=== PATIENT | female | born 1960 | race Caucasian/White ===

== ENCOUNTER 2020-11-08 20:44 | Inpatient (IN) | payer OTHER ==
[~2020-11-08] VITALS: Ht 165.1 cm; Wt 158.3 kg
--- NOTE | ~2020-11-08 | HC ---
[facility] [place] [address] CONSULTATION Name: SELINA LINARES Room #: 363-P ADM IN M.R.#: [id number] Admission: 11/08/20 Attend Phys: Esperanza Kraft Monica Discharge: Date of : 60 Report #: [id number] THIS REPORT FOR: cc: Nick Gaspar Sr, MD, Otis S Sr MD Smithson, David G. MD ~ DATE OF SERVICE: 11/24/2020 HISTORY OF PRESENT ILLNESS: The patient is seen back today in followup. She notes she is feeling better, although she continues to have some problems with photophobia and some dizziness, which she relates back to the initial fall at home on 11/08/2020 when she hit her head and lost consciousness, which she notes for 5 hours before she woke up. CT of the head was negative and she refused the MRI. Neurology has been consulted for traumatic brain injury. She is receiving the IV L1asix for her congestive heart failure. She is continuing on 2 liters nasal prong O2. PHYSICAL EXAMINATION: GENERAL: The patient is alert. She is pleasant. She follows basic commands without difficulty. She appears a little excitable and can talk fast, but is very appropriate with her answers. She has facies which are symmetric. NEUROMUSCULOSKELETAL: Functional range of motion of the upper extremity, strength is a grade 4- to 4/5. Lower extremities, Band-Aid is over the left lateral knee, which was injected by Orthopedics. Strength is grade 4-/5. There is no focal calf swelling. She is significantly obese. She has been transferring sit to stand, standby assistance, gait 100 feet, standby assistance with a front-wheeled walker. Continuing on the 2 liters nasal prong O2. In occupational therapy, she deferred today. ASSESSMENT: 1. Traumatic brain injury, concussion, status post fall. 2. Acute hypoxic respiratory failure with pneumonia. 3. Acute diastolic congestive heart failure. 4. Left breast cellulitis. 5. Anxiety, which appears to be improving. 6. Stage 2 buttock ulcer. 7. Bilateral acute and chronic knee pain. 8. History of gastric bypass for morbid obesity. 9. Iron deficiency anemia. 10. Status post left knee joint injection by Orthopedics. PLAN: Primary service is desiring for her to come to the acute in-hospital inpatient rehabilitation kelly. Insurance will be checked regarding a short acute in-hospital inpatient rehabilitation stay. I discussed with the patient further regarding various issues: [facility] [address] [place] [address] CONSULTATION Name: SELINA LINARES Room #: 363-P [facility] IN ..#: [id number] Admission: 11/08/20 Attend Phys: Esperanza Lee Discharge: Date of : 60 Report #: [id number] 1. Nasal prong O2. Currently on 2 liters. She was not on oxygen premorbidly. 2. Narcotics. She is on morphine HCL and hydrocodone and has a contract through Lore Levi with Dr. Gaspar. She notes she has decreased her morphine dose considerably. 3. She indicates that she does have a home setting to return to. There was apparently conflict with her landlord, but she notes she has an contract attorney involved and does have the apartment, which she will be able to return to. 4. Therapy cooperation. The patient indicates that she will be cooperative and work in therapies, PT and OT and also appeared amenable to have some speech therapy involvement when I discussed that speech would be working with her regarding some of the issues with the traumatic brain injury rather than just speech issues. We will have speech therapy involved and we will consult them at this point as well. 5. We discussed the goal to further improve her strength, mobility, ADL independence and independence with cognition, so that she can return back to the home setting. She appears amenable to a short inpatient rehabilitation stay to maximize her functional independence, so that this can be achieved. Again, insurance precertification issues will need to be checked and we will be glad to follow along with you. By: [id number] 1125 Christian Varma MD /nt
--- NOTE | ~2020-11-08 | HC ---
[facility] [place] [address] CONSULTATION Name: SELINA LINARES Room #: 363-P ADM IN M.R.#: [id number] Admission: 11/08/20 Attend Phys: Esperanza Lee Discharge: Date of : 60 Report #: [id number] THIS REPORT FOR: cc: Nick Gaspar Sr, MD, Otis S Sr MD Rizzi, Raymond M. DPM ~ INTRODUCTION: A 60-year-old white female who was admitted to the hospital on 11/08/2020 where she was admitted from falling and unable to get up, also concerns of head trauma due to loss of consciousness. I am asked to see her today because of bilateral foot pain. PAST MEDICAL HISTORY: Noted for anemia, congestive heart failure, dyspnea, fall, anemia, and morbid obesity. MEDICATIONS: List in the chart. ALLERGIES: No known drug allergies. PREVIOUS SURGERIES: The patient had previous history of abdominal hernia repair, cholecystectomy, gastric bypass, lumbar fusion. FAMILY HISTORY: Noncontributory. SOCIAL HISTORY: The patient has history of heavy use of cigarettes and occasional alcohol. PHYSICAL EXAMINATION: GENERAL: The patient is well-developed, well-nourished, morbidly obese white female, disheveled when she came into the hospital, but since has been cleaned up. HEENT: PERRLA. NECK: Supple. No neck lymphadenopathy. HEART: Regular rate and rhythm. LUNGS: No respiratory distress. EXTREMITIES: Lower extremity exam shows her feet looked normal gross appearance with no abnormalities in the ankle or foot noted. She has what she states definitely has pain in her heels when she is walking. She has normal neurovascular status. She has fungal nails of the hallux bilaterally. X-rays unremarkable. ASSESSMENT: The patient has possible plantar fasciitis and she also has [facility] [place] [address] [place] [address] CONSULTATION Name: SELINA LINARES OLGA LIDIA Room #: 363-P [facility] IN ..#: [id number] Admission: 11/08/20 Attend Phys: Esperanza Lee Discharge: Date of : 60 Report #: [id number] cirrhosis and possible tinea pedis. Plan to ____ Lamisil 250 one a day for the next 3 days. I was asked to follow up in my office for further evaluation of plantar fascia, possibly an injection and also talked about good shoes. Most likely, she will go to ____ good shoes and inserts ____ when she is out of the hospital. By: 1222 [id number] Moy Thompson, LANCE /nt
[~2020-11-08 20:44] MED LIST: CYMBALTA60 MG PO; HYDROCODON-ACE1 EAC5 PO; MS CONTIN 30 MG30 M1 PO; ZOFRAN ODT4 MG PO; ZOLOFT100 MG PO
[2020-11-08 20:45] VITALS: BP 158/80
[2020-11-08] MEDS ORDERED: NEXIUM 40 MG CA40 M1 PO (21:06)
[2020-11-08 21:18] LABS: BASOPHILS 0.2 % (0.0-2.0); HEMOGLOBIN 8.9 gm/dL (12.0-15.0)
[2020-11-08 21:25] LABS: BE(vivo) 6.8 mmol/L (-2 to +3); HCO3 32.6 mmol/L (22.0-26.0); PCO2 53.1 mmHg (35.0-45.0); PO2 77.5 mmHg (80.0-100.0); pH 7.406 (7.360-7.450); sO2 95.3 % (92.0-98.0)
[2020-11-08 21:27] LABS: ABSOLUTE NEUTROPHILS 10.3 thou/uL (1.4-8.2); EOSINOPHILS 0.2 % (0.0-3.0); LYMPHOCYTES 6.6 % (24.0-44.0); MCH 18.5 pg (26.0-34.0); MCHC 26.7 g/dL (28.0-37.0); MCV 69.3 fL (80.0-100.0); MONOCYTES 6.5 % (1.0-8.0); PLATELET COUNT 448 thou/uL (150-400); POLYS 86.5 % (36.0-66.0); RBC 4.83 mil/uL (4.20-5.00); RDW 20.2 % (10.5-14.5); WBC 11.9 thou/uL (4.0-11.0)
[2020-11-08 21:28] LABS: ANION GAP 1 mmol/L (7-16); BUN 17 mg/dL (7-18); CALCIUM 8.5 mg/dL (8.5-10.1); CHLORIDE 99 mmol/L (98-107); CO2 39 mmol/L (21-32); CREATININE 0.8 mg/dL (0.6-1.0); GLUCOSE 117 mg/dL (74-106); POTASSIUM 3.5 mmol/L (3.5-5.1); SODIUM 139 mmol/L (136-145)
[2020-11-08 21:31] LABS: HEMATOCRIT 31.8 % (37.0-47.0); INR 1.1; PROTIME 11.8 Seconds (9.3-11.4)
[2020-11-08 21:38] LABS: ALBUMIN 2.7 g/dL (3.4-5.0); SGOT 26 U/L (15-37); SGPT 24 U/L (14-59); TOTAL BILIRUBIN 0.5 mg/dL (0.2-1.0); TOTAL PROTEIN 7.3 g/dL (6.4-8.2); TROPONIN-I <0.06 ng/mL (<0.06)
[2020-11-08 21:48] LABS: ANISOCYTOSIS 2+; HYPOCHROMASIA 3+; MICROCYTES 3+
[2020-11-08 22:17] VITALS: BP 136/70
--- NOTE | 2020-11-08 22:30 | NUR ---
Lydia director global sales gave report to 3 agustin nurse. 3 agustin reports room is not yet clean and will call when pt can be transported
[2020-11-08 22:31] VITALS: BP 0/0
[2020-11-08] MEDS ORDERED: HYDROCHLOROTHIA25 M1 PO (22:34)
[2020-11-08] MEDS ORDERED: PROAIR HFA8.5 GM INH (22:35)
--- NOTE | 2020-11-09 00:20 | NUR ---
Pt taken up to floor at this time
[2020-11-09 00:50] VITALS: BP 122/66
[2020-11-09 05:48] LABS: HEMOGLOBIN 8.6 gm/dL (12.0-15.0); MCH 18.6 pg (26.0-34.0); MCHC 26.8 g/dL (28.0-37.0); MCV 69.4 fL (80.0-100.0); RBC 4.61 mil/uL (4.20-5.00); RDW 20.2 % (10.5-14.5); WBC 11.8 thou/uL (4.0-11.0)
[2020-11-09 05:51] VITALS: BP 116/74
[2020-11-09 06:08] LABS: ALBUMIN 2.4 g/dL (3.4-5.0); CALCIUM 8.3 mg/dL (8.5-10.1); CREATININE 0.7 mg/dL (0.6-1.0); POTASSIUM 3.1 mmol/L (3.5-5.1); TOTAL BILIRUBIN 0.4 mg/dL (0.2-1.0); TOTAL PROTEIN 6.8 g/dL (6.4-8.2)
[2020-11-09 07:12] VITALS: BP 90/51
--- NOTE | 2020-11-09 07:49 | NUR ---
PT ARRIVED VIA CART AND 02 FROM ER. 02 REQUIREMENTS ARE 4L AT THIS TIME. PT IS A/OX4 AND X1 ASSIST. PT HAS COMPLAINTS OF SOA WITH MOVEMENT. FOLLOWING POC WITH 1750ML FLUID RESTRICTION. FOLLOWING POC WITH IV LASIX AND IVPB ANTIBIOTICS. ADMISSION COMPLETED, CARE PLAN STARTED, AND INTERVENTIONS IN PLACE. CONSULTS TO CARDIO AND PULM CALLED IN. PT HAS ONE WOUND ON LEFT UPPER THIGH ON BACKSIDE IN A FOLD. PICTURE TAKEN.
--- NOTE | 2020-11-09 09:24 | NUR ---
ASSUMED CARE FOR PT AT SHIFT CHANGE. PT TOOK PHONE CALL FROM [employer]ANDLORCa[employer] DURING THIS INTERNET MARKETER. PT HAS 4 DOGS IN HER HOME, CURRENTLY UNATTENDED. PT HAS FECES DRIED AND CAKED ON BOTTOM OF FEET. THIS RN HAS PLACED SOAPY WATER WASHCLOTHS ON BOTTOM OF FEET TO HELP CLEANSE. PT IS STATING TO RUTHLORCaio HER FURNACE IS HAVING ISSUES, HAS MADE MULTIPLE COMMENTS DOUBTING HER ABILITY TO TAKE CARE OF HER SELF OR ANIMALS. PT STATES SHE PROCRASTINATES AND IS FREQUENTLY IN DENIAL OF SELF CARE NEEDS. PT FURTHER STATES SHE "HAS NO ONE" AND CANNOT CALL ANYONE FOR ANY ASSISTANCE OF ANY KIND.
--- NOTE | 2020-11-09 10:18 | EKG ---
[place] [address] [place] [address] ELECTROCARDIOGRAM REPORT Name: SELINA LINARES Room #: 349-I ADM IN ..#: [id number] Admission: 11/08/20 Attend Phys: Esperanza Lee Discharge: Date of : 60 Report #: [id number] [facility] ED Test Date: 2020-11-08 Test Time: 22:03:14 Pat Name: SELINA LINARES Department: Room: [facility] Gender: F Physical Education Instructor: : 1960 Requested By: Christian Disla Order Number: [id number] MD: Alexx Wiggins Measurements Intervals [place] Rate: 100 P: -77 IN: 160 QRS: 147 QRSD: 107 T: 18 QT: 345 QTc: 445 Interpretive Statements Sinus rhythm Poor R wave progression Low voltage No previous ECG available for comparison Electronically Signed On 11-09-2020 10:18:04 CDT by Alexx Wiggins [email or web address] <ELECTRONICALLY SIGNED> By: Alexx Wiggins MD, [facility] 11/09/20 [id number] Alexx Wiggins MD, FACC /EPI
[2020-11-09 10:48] LABS: % SATURATION 3 % (20-39); IRON 13 ug/dL (50-170); TIBC 464 ug/dL (250-450)
[2020-11-09] MEDS ORDERED: GLUCOSAMINE &1 EACH PO (11:34)
[2020-11-09 12:47] VITALS: BP 115/66
--- NOTE | 2020-11-09 13:29 | NUR ---
THIS RN DELIVERED PT HOME MEDS TO PHARMACY. 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 PT INFORMED THIS RN THAT SHE TOOK HER OWN MEDICATION THIS MORNING AT 0600 WHICH INCLUDED HER EXTENDED RELEASE MORPHINE. THE PT DID NOT TELL THIS RN THAT SHE TOOK HER OWN MEDICATION AT 0600 WHEN THIS RN ADMINISTERED MORNING MEDICATION FROM 0900 SCHEDULED MEDS, INCLUDING HOSPITAL SCHEDULED MORPHINE ER. PT VITALS ARE STABLE. PT IS ALERT & ORIENTED. PT STATES TO THIS RN THAT SHE "DID TAKE ADVANTAGE OF THE SITUTAION" AND WANTED TO "GET AHEAD IN CASE WE DIDN'T GIVE HER ANY ADDITIONAL MEDICATION LATER". THIS RN CONTACTED DR SANCHEZ AND PHARMACY TO UPDATE. PT LATER REQUESTED THAT "WE JUST FORGET ABOUT THIS" AND REQUESTED HER PRN HYDROCODONE "SO I DON'T GO INTO WITHDRAWL" BUT PREVIOUSLY RATED HER PAIN A 4. NO S/S DISTRESS OR WITHDRAWL AT THIS TIME.
--- NOTE | 2020-11-09 14:31 | NUR ---
PT STATES HER DOSE FOR HER HYDROCODONE IS 2 TABS Q 6HRS. PT REFUSES TO BELIEVE THE HYDROCODONE IS PRN. PT DEMANDS HER SCHEDULED DOSE. PT STATES HER PAIN IS NOT A 6, IT IS NOW AN 8 OR 10.
[2020-11-09 15:12] VITALS: BP 134/72
--- NOTE | 2020-11-09 16:08 | NUR ---
PT STATES SHE NORMALLY TAKES 2 OF HER HYDROCODONES AT NIGHT ALONG WITH 2 OTC BENADRYL. PT DENIES SOA AT HOME, DOES NOT USE OXYGEN AT HOME. PT DENIES PAIN IN BLE. LOTION APPLIED FOR DRY SKIN. FEET WERE SOAKED AND WASHED EARLIER. MULTIPLE CRACKS NOTED ON SOLES OF FEET. NO BLEEDING OBSERVED.
--- NOTE | 2020-11-09 16:57 | NUR ---
PER LAURA FLETCHER DC ISOLATION PRECAUTIONS.
[2020-11-09 19:27] VITALS: BP 119/64
[2020-11-10 03:52] VITALS: BP 124/76
[2020-11-10 05:18] LABS: HEMATOCRIT 32.1 % (37.0-47.0); HEMOGLOBIN 8.8 gm/dL (12.0-15.0); MCH 18.8 pg (26.0-34.0); MCHC 27.3 g/dL (28.0-37.0); MCV 68.9 fL (80.0-100.0); RBC 4.66 mil/uL (4.20-5.00); RDW 19.8 % (10.5-14.5); WBC 9.5 thou/uL (4.0-11.0)
[2020-11-10 05:32] LABS: CALCIUM 8.2 mg/dL (8.5-10.1); CREATININE 0.7 mg/dL (0.6-1.0)
--- NOTE | 2020-11-10 07:13 | NUR ---
PROGRESS PT A/O X4 VERY IRRITABLE AND YELLING UPSET OVER MEDICATION SCHEDULE. SPENT AN HOUR OR MORE DISCUSSING MEDICATIONS AND SCHEDULING UNTIL PT UNDERSTOOD. RATING BACK AND LEG PAIN A 6 TO 10 TAKING 30 MG LONG ACTING MORPHINE BID AND 10 MG HYDROCODONE Q6HRS PRN PER HOME REGIMEN. IV TO RAC INFUSING IV ANTIBIOTICS ORDERED.ON 1749 FLUID RESTRICTION 35 CC'S FROM 1900 TO MIDNIGHT AND 340 FROM MIDNIGHT UNTIL 7 AM. SAT ON SIDE OF BED FOR AND HOUR UNABLE TO SIT UP HER SELF SHE IS UNABLE TO MOVE HER LEGS D/T EDEMA AND SIZE. REPORTS FALLING MORE THAN ONCE AT HOME. BILATERAL LOWER EXTREMETIES REDDENED FEET DRY WITH A LOT OF CALLOUSED LOOKING AREAS. TELEMETRY READING SR/ST VSS DICKERSON INTACT DRAINING CLEAR YELLOW URINE. TOLERATING REG 2 GRAM NA DIET. COVID TEST NEGATIVE. ON 5 LITERS O2 NO COUGH NOTED LUNGS DIMINISHED BUT CLEAR.PLAN FOR ECHO TODAY.
[2020-11-10 07:14] VITALS: BP 128/75
--- NOTE | 2020-11-10 08:36 | NUR ---
PT IS VERY UPSET SHE IS NOT ON HER HOME SCHEDULE. SHE DEMANDS HER HYDROCODONE BE SCHEDULED, "LIKE IT IS AT HOME". SHE STATES THAT THE TWO HOUR ADMNISTRATION DIFFERENCE IS NOT ACCEPTABLE. THIS RN IS UNABLE TO GET PT TO UNDERSTAND HER HYDROCODONE IS ON A 6 HOUR PRN SCHEDULE.
--- NOTE | 2020-11-10 09:47 | NUR ---
Nutrition: RD received consult related to malnutrition/wound. Pt admit with SOA, fall. Class 3 extreme obesity with BMI 72. Left buttock/hip ulcer, LE edema. Wound care to see. Suspected CHF. Eating 100% of meals on 2 gm Na diet. PMH: gastric bypass, choly, morbid obesity. Pt refuses any protein drinks or dietary interventions-in fact, stated dietitians are the least of her concerns. Was more focused on medication management and meal choices which RD assisted with the latter. Tries to eat adequate HBV protein foods. Did not press on weight hx as pt was not forthcoming with this type of information. Did state gastric bypass was back in 2003. RD available for further needs but place as low risk. Malnutrition dx deferred to physician.
--- NOTE | 2020-11-10 10:36 | NUR ---
INITIAL ASSESSMENT: Received consult. SW reviewed chart and spoke with nursing and attending physician. Pt was admitted from home due to weakness/edema/CHF. Pt placed in Enhanced Isolation to r/o COVID. Pt's test was negative. Pt is on 5L of O2 and on IV abx. SW spoke with pt via phone. Introduced role of SW. Pt states she lives at home alone. Prior to admission, pt was not using any DME. Pt states she fell and had to crawl to the phone to call EMS. Pt reports that she currently lives in [address] housing and does not think she will be able to return to living independently. Pt has not seen her PCP ( Dr. Nick Gaspar at [facility]) for over a year due to COVID. Her prescriptions are still being filled by Dr. Gaspar, but she has not physically seen him. Pt states that she does not have family or friends who are able to assist her. Pt used to hav 10.5 hours of in-home care through her Medicaid. Pt used to have services through the [employer], but she wanted to try to find a different company and has not been able to get services in place. Pt reports she has a long list of medical issues that she would like to have addressed while hospitalized. Pt states she would be agreeable with placement upon discharge. PT/OT evals ordered and are pending. Pt does not want to have anyone listed as a contact for her, at this time. SW is following to assist as needed with discharge planning.
--- NOTE | 2020-11-10 15:16 | NUR ---
PT IV INFILTRATED. THIS RN UNABLE TO DETERMINE IV SITE DUE TO PT DEEP VEINS. IV TEAM PAGED.
[2020-11-10 16:10] VITALS: BP 132/68
--- NOTE | 2020-11-10 17:29 | NUR ---
PT IS SLEEPING, PT HAS NOT ASKED FOR PRN HYDROCODONE SINCE MORNING.
[2020-11-10 19:20] VITALS: BP 130/86
[2020-11-10 22:06] LABS: GLYCOHEMOGLOBIN (HGB A1C) 6.4 % (4.8-5.6)
[2020-11-11 03:30] VITALS: BP 122/69
--- NOTE | 2020-11-11 06:22 | NUR ---
PT VERY ARGUMENTATIVE ABOUT MEDS, FOOD, AND DRINK. STATES WE ARE TRYING TO DISCHARGE HER BEFORE PROPER ASSESSMENTS AND DIAGNOSTIC TEST ARE COMPLETED. STATES SHE HAS NOT BEEN TO DOCTOR IN OVER 2 YEARS AND IS GOING TO GET EVERYTHING COMPLETED WHILE HERE. TELE SHOWS SINUS TACH ALL SHIFT. PIV VERY SLUGGISH, FINALY GOT FLUIDS TO RUN AT 25ml/HR AND TO ALLOW FOR IVPB TO BEGIN AFTER 2400. PT WOULD NOT LET IV STICK IN HAND, STATING I'M AFRAID IT WOULD IMPEDE HER EATING AND DRINKING. PAIN MANAGEMENT WAS GOAL FOR EVENING.
[2020-11-11 08:28] VITALS: BP 122/72
--- NOTE | 2020-11-11 08:52 | 2DMMODE ---
[facility] [place] [address] 2 D/M-MODE ECHOCARDIOGRAM Name: SELINA LINARES Room #: 349-I ADM IN M.R.#: [id number] Admission: 11/08/20 Attend Phys: Esperanza Lee Discharge: Date of : 60 Report #: [id number] THIS REPORT FOR: cc: Nick Gaspar Sr, MD, Otis S Sr MD Lundgren, Craig H. MD [facility] ~ APPROVED REPORT Study performed: 11/11/2020 07:15:44 EXAM: Comprehensive 2D, Doppler, and color-flow Echocardiogram Patient Location: Bedside Room #: 349 Status: routine BSA: 2.75 HR: 98 bpm BP: 122/69 mmHg Rhythm: NSR Other Information Study Quality: Poor Technically limited study due to morbid obesity. Indications CHF. Echo Enhancing Agent Indication: Endocardial border delineation Agent(s) / Amount(s) Used: Optison 6 cc 2D Dimensions RVDd: 46.50 mm IVSd: 12.11 (7-11mm) LVDd: 41.73 mm PWd: 15.22 (7-11mm) LVDs: 28.97 (25-40mm) Aortic Root: 35.96 mm Volumes Left Atrial Volume (Systole) Single Plane 4CH: 68.32 mL Single Plane 2CH: 74.45 mL LA ESV Index: 80.00 mL/m2 [facility] [address] [place] [address] 2 D/M-MODE ECHOCARDIOGRAM Name: SELINA LINARES Room #: 349-I ADM IN [facility].#: [id number] Admission: 11/08/20 Attend Phys: Esperanza Dillard Discharge: Date of : 60 Report #: [id number] Aortic Valve AoV Peak [place].: 1.42 m/s AO Peak Gr.: 8.10 mmHg LVOT Max P.97 mmHg LVOT Max V: 1.00 m/s Mitral Valve E/A Ratio: 1.1 MV Decel. Time: 130.16 ms MV E Max [place].: 1.31 m/s MV A [place].: 1.16 m/s MV PHT: 37.75 ms IVRT: 51.90 ms Pulmonary Valve PV Peak [place].: 1.08 m/s PV Peak Gr.: 4.65 mmHg Tricuspid Valve TR Peak [place].: 2.72 m/s TR Peak Gr.: 30.00 mmHg Left Ventricle The left ventricle is normal size. There is normal LV segmental wall motion. There is normal left ventricular wall thickness. Left ventricular systolic function is normal. LVEF is 65-70%. Left ventricular filling pattern is normal for age. Right Ventricle Right ventricle appears dilated. Atria The left atrium size is normal. Right atrium appears dilated. Aortic Valve Aortic valve is not well visualized. No aortic regurgitation is present. There is no aortic valvular stenosis. Mitral Valve The mitral valve is normal in structure. There is no mitral valve regurgitation noted. No evidence of mitral valve stenosis. Tricuspid Valve The tricuspid valve is normal in structure. Mild tricuspid regurgitation. Estimated PAP is 40mmHg Pulmonic Valve Pulmonic valve is not well visualized. [facility] [address] [address] 2 D/M-MODE ECHOCARDIOGRAM Name: SELINA LINARES Room #: 349-I [facility] IN [facility].#: [id number] Admission: 11/08/20 Attend Phys: Esperanza Dillard Discharge: Date of : 60 Report #: [id number] Great Vessels The aortic root is normal in size. Ascending aorta is not well visualized. IVC is not well visualized. Pericardium There is no pericardial effusion. <Conclusion> Left ventricular systolic function is normal. There is normal LV segmental wall motion. LVEF is 65-70%. Right ventricle appears dilated. Aortic valve is not well visualized. No aortic regurgitation or stenosis. The mitral valve is normal in structure. No mitral valve regurgitation. Mild tricuspid regurgitation. Estimated pulmonary artery pressure of 40mmHg There is no pericardial effusion. <ELECTRONICALLY SIGNED> By: Alexx Wiggins MD, [facility] 11/11/20 [phone] Alexx Wiggins MD, FACC /INF
--- NOTE | 2020-11-11 10:42 | NUR ---
PER IV TEAM, PT CANNOT HAVE LONGER CANNULA/MIDLINE DUE TO IRON INFUSIONS. SUCCESSFUL LEFT FOREARM PLACED.
--- NOTE | 2020-11-11 11:17 | NUR ---
PT HAS REFUSED MALE INTERACTIONS DUE TO HER "PTSD" PULMONARY CONSULT HAS BEEN REFUSED BY PT BECAUSE HE WAS INTERRUPTING HER TV SHOW. RT PROVIDED SALINE DROPS FOR NOSE PER PT REQUEST.
--- NOTE | 2020-11-11 15:12 | NUR ---
SW reviewed chart and spoke with nursing and attending physician. Pt is on 4L and on IV abx. Pt is progressing towards goals for discharge. SW met with pt at bedside to discuss discharge planning. SW provided pt with list of SNFs/AL facilities for review. Long discussion with pt regarding level of care needs upon discharge. Pt states that she knows she cannot take care of herself at this time. Pt tearful and stating that she does not like to socialize or leave her home. Her family is all . Pt's significant other 11 years ago. Pt has several dogs. SW discussed SNF placement and then potential AL placement if needed. Pt verbalized understanding and states she does not want to be rushed to leave the hospital. SW explained that the physician will determine when pt is medically stable for discharge. JODY is following to assist as needed with discharge planning.
[2020-11-11 15:43] VITALS: BP 139/75
[2020-11-11 19:37] VITALS: BP 139/59
[2020-11-12 04:41] VITALS: BP 132/64
--- NOTE | 2020-11-12 06:25 | NUR ---
PT IN [facility] BED AND MORE COMFORTABLE FOR PT. PT STATES SHE IS STILL NOT FEELING GOOD AND IS HAVING HARD TIME BREATHING WHILE VSS ARE STABLE. PT ALSO STATES SHE IS STILL SWELLING MORE IN GENERALIZED AREA. PT UP TO BSC FOR BM LAST NIGHT WITH X4 ASSIST. PLACED HOVERMATT TO HELP MOVE PT IN MORE ORGANIZED FASHION.
--- NOTE | 2020-11-12 09:05 | NUR ---
[facility] ADVANCED LETTER WITHIN PATIENTS REACH, PREFERRED SKILLED LIST IN CHART.
[2020-11-12 10:00] VITALS: BP 127/89
--- NOTE | 2020-11-12 11:25 | NUR ---
WOUND CARE F/U; THE WOUND TO THE LEFT BUTTOCKS IS FRAGIALLY HEALED, NO S/S OF INFECTION. OFFLOADING IS EFFECTIVE WITH A BARRIATRIC LOW AIRLOSS MATTERSS AND BED. NO OTHER WOUND CONCERNS. I WILL SIGN OFF, RECONSULT IF NEEDED. RN PRESENT.
--- NOTE | 2020-11-12 16:08 | NUR ---
JODY reviewed chart and spoke with nursing and attending physician. Pt is on 4L of O2 and on IV abx. ID consulted today. JODY received call from Ilda Vargas at [facility] [employer] [facility] ( ). SW met with pt at bedside. Pt states that she has spoken with Ilda earlier today regarding her four dogs that are currently at home. Pt states that she has agreed to have [employer] foster her dogs until she is able to return home. Pt gave consent for JODY to contact Ilda to follow up and assist as needed. JODY left voice message for Ilda at the office. Cell phone voice mail has not been set up. JODY is following to assist as needed with discharge planning.
--- NOTE | 2020-11-12 18:24 | NUR ---
CARE TAKEN OVER AT 0700, PT ALERT AND ORIENTED X4, IRRITABLE AND FRUSTRATED AT TIMES, PT REDIRECTED WHEN NEEDED. DENIES N&V. PAIN MED GIVEN PER ORDER FOR CHRONIC PAIN. PT REPOSTIONED PER REQUEST. WOUND CARE COMPLETED AND OICTURE TAKEN WITH WOUND CARE NURSE. FALL PRECAUTIONS IN PLACE. DICKERSON CATHETER IN PLACE. DENIES ANY NEEDS VA
[2020-11-12 20:07] VITALS: BP 111/70
--- NOTE | 2020-11-12 21:50 | NUR ---
DURING 2100 MED PASS PT RECEIVES 2 15MG MORPHINE AND LIPITOR. PT STATES "THAT SHE ONLY RECEIVED ONE 15MG MORPHINE AND NOT TWO 15MG MORPHINE. SHE PULLED ONE 15MG MORPHINE AND LIPITOR OUT OF HER MOUTH." I WAS STANDING AT BEDSIDE AND ADMINISTERED 2 PO 15MG MORPHINE INTO PILL CUP AND WATCHED PT TAKE ALL CONTENTS. PT STATING "THERE WAS ONLY 1 BLUE PILL IN THE CUP," I EDUCATED PT THAT I PUT TWO PILLS INTO THE CUP. TO APPEASE PT SAID NURSE LOOKED OVER TRAY TABLE, FLOOR, EMPTIED CONTENTS OF SAID NURSE POCKETS, AND THERE WAS NO 15MG MORPHINE PILL. I IMMEDIATELY CALLED SUPERVISOR LOOPING TO INFORM, AND RECEIVED INSTRUCTIONS TO CALL PHYSICIAN TRIALS MANAGER. SPOKE TO TRIALS MANAGER DOCTOR AND RECEIVED INSTRUCTIONS TO TELL PT THAT THIS BEHAVIOR WILL NOT BE TOLERATED AND ANY OTHER ATTEMPTS WILL RESULT IN MEDICATION TO BE STOPPED AND ONLY TYLENOL WILL BE GIVEN FOR PAIN.
--- NOTE | 2020-11-12 23:41 | NUR ---
PT STILL WANTING TO ARGUE ABOUT MISSING PO MEDICATION. I SPOKE TO HER AND RELATED PHYSICIANS MESSAGE AND THE DISCUSSION IS OVER. 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 PT IS MAKING DEMANDS NOW, "I WANT TO SEE THE DOCTOR NOW!" I RESTATED THE PHYSICIAN IS AWARE OF THE SITUATION AND IT WILL NOT CHANGE.
--- NOTE | 2020-11-12 23:55 | NUR ---
RECEIVED PHONE CALL FROM PT IN 363 AT THIS TIME ON THE UNIT PHONE. (PRESUMABLY TRANSFERED BY THE HOSPITAL MUTUEL CASHIER.) "I NEED THE DOCTOR SUPERVISOR SPINNING. I HAVE A MEDICAL EMERGENCY." WHEN ASKED WHAT TYPE OF EMERGENCY SHE STATED "I'M NOT GETTING MY PAIN MEDICATION. I NEED TO SPEAK TO THE DOCTOR SUPERVISOR SPINNING ABOUT MY NURSE." SPOKE WITH RN AND HE REPORTS THAT THE PT CLAIMED THAT HE DID NOT GIVE HER THE FULL DOSE OF OXYCONTIN. DEFER TO RN ELECTROFORMER.
[2020-11-13 04:43] VITALS: BP 131/75
--- NOTE | 2020-11-13 06:07 | NUR ---
PT STILL STATING HER PRN PAIN MEDICATION IS TO BE GIVEN SCHEDULED. PTS PRN MEDICATION IS OUT IN THE PYXIS AND WAITING ON RESTOCK, AND HOLD ACKNOWLEDGE WAS APPLIED. PT ALSO CALLED AT 0600 AND STATES "I HAVE NOT HAD A BATH SINCE LAST TUESDAY AND WANT ONE RIGHT NOW." EARLY IN SHIFT PT HAIR WAS WASHED. SPOKE TO DR. MCDONOUGH ABOUT DC'ING TELE DUE TO PT REMOVING OF IT. SHE DEFERRED TO HOSPITALIST ON PT CARE.
[2020-11-13 08:14] VITALS: BP 107/67
--- NOTE | 2020-11-13 12:06 | HC ---
[facility] [place] [address] CONSULTATION Name: SELINA LINARES Room #: 363-P ADM IN M.R.#: [id number] Admission: 11/08/20 Attend Phys: Esperanza Lee Discharge: Date of : 60 Report #: [id number] THIS REPORT FOR: cc: Nick Gaspar Sr, MD, Otis S Sr MD Barry, Joseph W. MD ~ DATE OF SERVICE: 11/12/2020 INFECTIOUS DISEASE CONSULTATION ATTENDING PHYSICIAN: Dr. Romeo. REASON FOR EVALUATION: Left breast cellulitis. HISTORY OF PRESENT ILLNESS: Chart reviewed, patient examined. This is a 60-year-old woman with morbid obesity, who apparently over the course of last 2 weeks has lost significant amount of independence. She notes she has been unable to really shower for a number of years. She wipes herself down with baby wipes; however, unfortunately, she has not been able to do that last 2 weeks, unable to reach perineal sites. She has developed increasing pain over the mons pubis and subsequently inflammatory eruption over the left breast. She denies any antecedent injury. She has had some chills and fevers. She notes her appetite has been fair, although she has decreased p.o. intake, overall, although she suspects she has gained weight. Denies significant pulmonary-related complaints. She was evaluated in the Emergency Room subsequent to a fall for which she could get up, so she crawled around for a couple of hours to find her phone. Initial lactic acid was 1.2. Coronavirus testing was negative. Procalcitonin is 0.15. CRP elevated at 115.9. Sed rate of 22. She was initiated on therapy with vancomycin and switched to Zosyn. Blood cultures collected at the time of admission are sterile thus far. Culture from the described as a sacral wound, had polymicrobial growth including Staph epi, corynebacterium, Proteus, E. coli, Bacteroides and Porphyromonas. She is not overtly toxic. ALLERGIES: None known. MEDICATIONS: Include furosemide, ipratropium, albuterol inhaler, enoxaparin, Zosyn, atorvastatin, spironolactone, aspirin, pantoprazole, p.r.n. analgesics and albuterol. PAST MEDICAL HISTORY: Bipolar disease, previous gastric bypass surgery, previous cholecystectomy. SOCIAL HISTORY: Denies smoking history. No illicit drug use. No ethanol use. [address] [address] CONSULTATION Name: SELINA LINARES Room #: 363-P [facility] IN [facility].#: [id number] Admission: 11/08/20 Attend Phys: Esperanza Lee Discharge: Date of : 60 Report #: [id number] FAMILY HISTORY: Noncontributory. REVIEW OF SYSTEMS: Otherwise, unremarkable 10-point review of systems. PHYSICAL EXAMINATION: GENERAL: Alert, cooperative, mildly anxious, in moderate distress. VITAL SIGNS: Temperature 99, pulse 107, respirations 18, and blood pressure 127/89. SKIN: Warm, dry, no rashes. HEENT: Normocephalic. Extraocular muscles are intact. NECK: Supple. LUNGS: Diminished breath sounds, otherwise clear. HEART: Regular, tachycardic. I do not appreciate a murmur. BREASTS: Left breast has an inflammatory erythrodermic type eruption, somewhat tender, especially laterally, ____ any fluctuance. No apparent site of puncture. ABDOMEN: Obese with large pannus. On the mons pubis, there is induration. It is tender to palpation. GENITOURINARY AND RECTAL: Deferred. LABORATORY DATA: Cultures as described above. Ultrasound of the left breast showed skin thickening and supple thickening, suggestion of cellulitis. Echo, EF of 65-70%, otherwise normal. No valvular abnormalities can be appreciated, although exam was suboptimal. No pericardial effusion. Blood cultures sterile thus far. Hemoglobin A1c is 6.4. Electrolytes: Sodium 138, potassium 4.0, chloride 98, bicarbonate is 37, anion gap of 3, BUN and creatinine 12 and 0.7. Ferritin of 20. CBC: White count of 11.8, H and H 8.6 and 33.0, platelets of 424. Coronavirus testing was negative. ASSESSMENT: Left breast cellulitis, may have a secondary of inflammatory eruption, perhaps cellulitis as well over the mons pubis. We will continue empiric therapy with Zosyn and see how she does clinically. May need to adjust therapy if does not improve, certainly at risk for additional complications. We will add incentive spirometry. She clearly needs assistance in her general care at the time that she is discharged. <ELECTRONICALLY SIGNED> By: León Sorensen MD 11/13/20 1206 [id number] León Sorensen MD /nt
--- NOTE | 2020-11-13 16:17 | NUR ---
SW received voice message from pt regarding discharge plan. SW reviewed chart and spoke with nursing and attending physician. Pt remains on 4L of O2 and IV abx. SW left another voice message for [employer] regarding the care of pt's dogs. SW met with pt at bedside to discuss discharge plan. Pt had requested referral to be sent to [facility]. [facility] is no longer opened. Pt states she has a friend, Jose, who lives in [place] and is a physical therapist. SW gave consent for SW to add Joes to contact list and to provide info to Jose to assist with placement. Pt also requests friend, Muna ([phone]) and friend Valeria ([phone]) to be added. Pt gives consent to speak with either one and provide updates. JODY spoke with Jose ([phone]) via phone. Introduced role of JODY. Jose states that she is in contact with some friends in the area regarding recommendations for facilities. JODY reviewed therapy notes with Jose. SW contact info provided to Jose with facility preferences. JODY left voice message for pt's friend, Muna, regarding visitor restrictions at this time at [facility]. JODY updated contact info for pt's friends. JODY updated pt's nurse regarding request for designated visitor. JODY is following to assist as needed with discharge planning.
[2020-11-13 16:24] VITALS: BP 108/60
[2020-11-13 16:26] VITALS: BP 108/60
[2020-11-13 16:47] LABS: HEMATOCRIT 31.9 % (37.0-47.0); HEMOGLOBIN 8.7 gm/dL (12.0-15.0); MCH 19.5 pg (26.0-34.0); MCHC 27.3 g/dL (28.0-37.0); MCV 71.5 fL (80.0-100.0); PLATELET COUNT 374 thou/uL (150-400); RBC 4.46 mil/uL (4.20-5.00); RDW 20.4 % (10.5-14.5)
[2020-11-13 17:03] LABS: ALBUMIN 2.5 g/dL (3.4-5.0); ANION GAP < 0 mmol/L (7-16); BUN 8 mg/dL (7-18); CALCIUM 8.4 mg/dL (8.5-10.1); CHLORIDE 96 mmol/L (98-107); CO2 42 mmol/L (21-32); CREATININE 0.7 mg/dL (0.6-1.0); GLUCOSE 122 mg/dL (74-106); POTASSIUM 3.9 mmol/L (3.5-5.1); SGOT 19 U/L (15-37); SGPT 21 U/L (14-59); SODIUM 136 mmol/L (136-145); TOTAL BILIRUBIN 0.5 mg/dL (0.2-1.0)
[2020-11-13 17:49] LABS: ABSOLUTE NEUTROPHILS 8.2 thou/uL (1.4-8.2)
[2020-11-13 17:52] LABS: ANISOCYTOSIS 2+; HYPOCHROMASIA 3+; POLYCHROMASIA 1+
[2020-11-13 17:53] LABS: MICROCYTES 1+
[2020-11-13 19:11] VITALS: BP 128/66
--- NOTE | 2020-11-13 19:29 | NUR ---
SHE HAS RESTED IN BED THROUGH THE DAY. PAIN MEDS GIVEN ON SCHEDULE. DOES NOT SEEM TO BE IN PAIN. WILL CONT WITH PLAN OF CARE.
[2020-11-14 05:58] VITALS: BP 125/74
[2020-11-14] MEDS ORDERED: MUCINEX600 MG PO (06:03)
--- NOTE | 2020-11-14 07:45 | NUR ---
ASSUMED CARE AT 1900. PT CALLING OUT FREQUENTLY, WANTING PAIN MEDS AND TO GET UP TO BSC. TALKED AT LENGTH THAT WITHOUT MORE ASSISTANCE OR PHYSICAL THERAPY TO HELP, IT WAS NOT SAFE TO GET HER OUT OF BED. UTILIZED BEDPAN. PT GRADUALLY LESS DEMANDING DURING NIGHT BUT CONTINUED TO CALL OUT FREQ. WOULD THROW ANY TRASH ONTO FLOOR INSTEAD OF USING TRASHCAN/LETTING STAFF THROW IT AWAY. ASKED FOR DRINKS REPEATEDLY DESPITE FLUID RESTRICTION. PT WAS AGREEABLE TO WEAR TELE OVERNIGHT, AND WAS ST LOW 100'S THROUGHOUT THE NIGHT. THIS AM, PT C/O EXCESSIVE WETNESS AT RIGHT LOWER BACK/HIP AREA, SAYING SHE WAS "LEAKING" AND BEING TEARFUL; EXAMINED AREA, BUT COULD NOT FIND A CLEAR SOURCE OF CELLULITIS/LYMPHADEMA/OPEN SKIN THAT COULD BE SOURCE OF WEEPING. PT REFUSED BED CHANGE AT THAT TIME. DID NOT NOTE ANY WEEPING SKIN AREAS THAT EXHIBITED SIGNS OF CELLULITIS, SUCH LEFT BREAST OR LEFT CALF. NO OTHER CONCERNS, SHIFT REPORT GIVEN AT 0700.
[2020-11-14 08:29] VITALS: BP 149/81
[2020-11-14 09:33] LABS: HEMATOCRIT 33.6 % (37.0-47.0); HEMOGLOBIN 8.9 gm/dL (12.0-15.0); MCH 19.5 pg (26.0-34.0); MCHC 26.6 g/dL (28.0-37.0); MCV 73.3 fL (80.0-100.0); RBC 4.59 mil/uL (4.20-5.00); RDW 20.5 % (10.5-14.5); WBC 10.6 thou/uL (4.0-11.0)
[2020-11-14 09:36] LABS: CALCIUM 8.8 mg/dL (8.5-10.1); CREATININE 0.6 mg/dL (0.6-1.0); MAGNESIUM 1.8 mg/dL (1.8-2.4); POTASSIUM 3.9 mmol/L (3.5-5.1)
[2020-11-14 15:38] VITALS: BP 119/59
--- NOTE | 2020-11-14 16:45 | NUR ---
JODY reviewed chart and spoke with nursing and attending physician. Pt remains on IV abx and IV lasix. Pt is on 4L of O2. SW spoke with pt via phone earlier today. Pt had left several message for SW regarding the care of her dogs. Ilda with [employer] dropped off paperwork earlier for pt to complete to obtain consent to go into pt's home to order picker/assembler pt's 4 dogs. Pt has agreed to give two dogs away and will foster her other 2 dogs until she is back home. JODY obtained approval from [facility] to allow Ilda to meet with pt in person to discuss ppwk. Ilda states she will be at [facility] this afternoon. JODY received voice message for pt's friend, Jose, regarding placement. SW returned call and left voice message. Psych consult ordered today. No weekend discharge planned. JODY is following to assist as needed with discharge planning.
--- NOTE | 2020-11-14 19:30 | NUR ---
NO CHANGED ON THIS SHIFT. [facility] MONITOR.
[2020-11-14 19:41] VITALS: BP 127/79
[2020-11-15 05:02] VITALS: BP 125/79
[2020-11-15 05:03] LABS: HEMOGLOBIN 9.2 gm/dL (12.0-15.0); MCHC 27.7 g/dL (28.0-37.0); MCV 72.1 fL (80.0-100.0); RBC 4.58 mil/uL (4.20-5.00); WBC 9.8 thou/uL (4.0-11.0)
[2020-11-15 05:14] LABS: CALCIUM 8.9 mg/dL (8.5-10.1); CREATININE 0.6 mg/dL (0.6-1.0); MAGNESIUM 1.8 mg/dL (1.8-2.4); POTASSIUM 4.4 mmol/L (3.5-5.1)
[2020-11-15 09:08] VITALS: BP 117/56
[2020-11-15 17:46] VITALS: BP 127/81
--- NOTE | 2020-11-15 18:26 | NUR ---
ASSUMED PATIENT CARE AT 0700. A/O X4. PLEASANT. PROGRESSING TOWARDS POC GOALS.
[2020-11-15 20:41] VITALS: BP 137/75
--- NOTE | 2020-11-16 03:23 | NUR ---
PT ALERT AND ORIENTED X4. VSS AFEBRILE. UNLABORED ON 3LNC. PT IS ANXIOUS AND ARGUMENTATIVE WITH CNAS. ENC PT TO CALL IF SHE EVER NEEDS ANYTHING. ASSISTED TO TURN PT ON SIDE TO DO PERICARE. PT REFUSES TO STAY ON SIDE AND PREFERS SUPINE. ENCOURAGED TO BE COMPLIANT WITH FLUID RESTICTION. PT ASKS FOR ICE OR WATER TO DIFFERENT STAFF. DICKERSON HAS LARGE AMTS CLEAR YELLOW URINE.
--- NOTE | 2020-11-16 06:09 | NUR ---
PT C/O CHESTPAIN 06/07. HOOK LOADER NOTIFIED. MORPINE 4 MG IV GIVEN ORDERED. TROPONIN BEING DRAWN. EKG PENDING.
--- NOTE | 2020-11-16 07:48 | NUR ---
EKG DONE SINUS RHYTHM. TROPONIN NEGATIVE. PT RATED PAIN 7/10 AFTER MORPHINE. NOTIFIED LEGAL INVESTIGATOR. ATIVAN 1 MG IV GIVEN X1. PT STATED PAIN GOING DOWN TO 5-6. PT VERY ANIMATED AND TALKATIVE DURING EPISODE OF CHEST PAIN.
[2020-11-16 08:50] VITALS: BP 113/69
[2020-11-16 09:57] LABS: CALCIUM 9.1 mg/dL (8.5-10.1); CREATININE 0.7 mg/dL (0.6-1.0); MAGNESIUM 1.8 mg/dL (1.8-2.4); POTASSIUM 3.6 mmol/L (3.5-5.1)
[2020-11-16 15:39] VITALS: BP 118/74
--- NOTE | 2020-11-16 18:20 | NUR ---
PATIENT DENIES CHST PAIN. SLOWLY TOWARDS POC GOALS.
[2020-11-16 19:51] VITALS: BP 118/77
--- NOTE | 2020-11-16 22:19 | NUR ---
PT RESTING IN BED. VERY HAPPY AND TALKATIVE. O2 PER NC. OBESE WITH GENERALIZED EDEMA. PT HAD LARGE BM. PT EXPLAINED HER NEED FOR EXACT TIMING WITH PAIN MEDICATION TO PREVENT FLARE UP DISCOMFORT. PT REMAINS ON FLUID RESTRICTION. BIG BOY BED.
[2020-11-17 04:45] VITALS: BP 107/67
[2020-11-17 04:59] LABS: CALCIUM 8.6 mg/dL (8.5-10.1); CREATININE 0.6 mg/dL (0.6-1.0); MAGNESIUM 1.9 mg/dL (1.8-2.4); POTASSIUM 3.7 mmol/L (3.5-5.1)
--- NOTE | 2020-11-17 07:24 | EKG ---
[address] [place] [address] ELECTROCARDIOGRAM REPORT Name: SELINA LINARES Room #: 363- ADM IN M.R.#: [id number] Admission: 11/08/20 Attend Phys: Esperanza Lee Discharge: Date of : 60 Report #: [id number] [facility] Test Date: 2020-11-16 Test Time: 06:24:59 Pat Name: SELINA LINARES Department: Room: 363 Gender: F Manager Freelance: [id number] : 1960 Requested By: Ciara Renee Order Number: [id number] MD: Juan Carlos Sawant Measurements Intervals [place] Rate: 99 P: 62 MT: 174 QRS: 117 QRSD: 105 T: 51 QT: 327 QTc: 420 Interpretive Statements Sinus rhythm Right axis deviation Low voltage, precordial leads Compared to ECG 11/08/2020 22:03:14 Right-axis deviation now present Poor R-wave progression no longer present Electronically Signed On 11-17-2020 7:24:03 CDT by Juan Carlos Sawant [email or web address] <ELECTRONICALLY SIGNED> By: Juan Carlos Sawant MD, [facility] 11/17/20723 3 3 Juan Carlos Sawant MD, [facility] /EPI
[2020-11-17 08:05] VITALS: BP 118/64
--- NOTE | 2020-11-17 14:34 | NUR ---
SW reviewed chart and spoke with nursing and attending physician. Pt is slowly progressing towards goals for discharge. Pt is on 4L of O2 and is on IV lasix and IV abx. Pt refused psych consult on Tuesday. SW received voice message from pt regarding discharge. SW met with pt at bedside this morning to follow up. Pt requests referral to be sent to [facility] for review. Pt is hopeful that she will be able to return directly home when medically stable. [employer] [employer] did meet with pt on Tuesday. One of pt's dogs has already been adopted. Her three other dogs will be in foster care for up to 3 months. Pt has friends that are helping her out. Pt states she is in better spirits today and feels confident that she will be able to return home when discharge. Pt states while hospitalized, she has started attending virtual AA meetings. Pt states she attending 4 AA meetings over the weekend. Pt has a half sister who is involved and several friends. Pt's friend, Aliza March ( ) is her designated visitor. Aliza came to get pt's house keys and brought some personal items to pt this afternoon. SW received email from Diane at [employer] who needs additional forms from pt completed and returned, in order to finalize foster program. JODY met with pt and Aliza at bedside to provide forms. Pt to complete and notify SW when completed. SW faxed referral to [facility] for review. SW is following to assist as needed with discharge planning.
[2020-11-17 15:39] VITALS: BP 115/60
--- NOTE | 2020-11-17 18:37 | NUR ---
pt alert and oriented x4, denies anusea and vomitting. pain med given per order for chronic back pain. garza cath in place. change pt bed due to inflation problems. pt stated she is content with new bed. denies any needs chao.
[2020-11-17 19:27] VITALS: BP 114/70
--- NOTE | 2020-11-17 19:46 | NUR ---
PT SEMI FOWLERS IN REG SIZE BED. PT IS OBESE. PT O2 PER NC, DICKERSON TO DD. PT ONLY HAS SHEET ON AND IS NOT COVERING HER BREASTS. PT VERY TALKATIVE FUNG LOOK ON FACE, BUT VOICE TONE HAPPY. PT REITERATED CONCERNS ABOUT STRICT COMPLIANCE WITH PAIN MED. PT CONCERNED NO BM TODAY WILL PROVIDE HER PRN WITH HS MEDS. PT DISCUSSED HOW ONE OF HER DOGS DID GET ADOPTED. ID DR JOHNSON.
[2020-11-18 04:58] VITALS: BP 131/77
[2020-11-18 06:20] LABS: CALCIUM 9.3 mg/dL (8.5-10.1); CREATININE 0.7 mg/dL (0.6-1.0); MAGNESIUM 1.9 mg/dL (1.8-2.4); POTASSIUM 3.8 mmol/L (3.5-5.1)
[2020-11-18 07:57] VITALS: BP 133/71
--- NOTE | 2020-11-18 10:30 | NUR ---
Note Given: Y Facility List Provided:Y Facility Luisa: None chosen at this time Tory Black NP discussed BPCI with this pt 11/17/20
--- NOTE | 2020-11-18 14:07 | NUR ---
Nutrition followup: weight down 30# due to diuresis. 3+ bilateral leg and 2+ generalized edema on spironolactone and lasix. Heart failure present on Heart healthy diet eating 80-100% of meals. Wound care indicating left buttock wound as stage 3 and left breast soft tissue infection/cellulitis. 11/16 BM. Labs reviewed. Prior refusal of supplements but voices understanding for increased HBV protein foods. Hx gastric bypass. Rehab unit evaluating pt. Continue as low risk.
--- NOTE | 2020-11-18 14:21 | NUR ---
JODY reviewed chart and spoke with nursing and attending physician. Pt remains on 4L of O2. Pt is on IV lasix, IV abx and IV steroids. 5[facility] consult ordered to evaluate pt for admission to inpt acute rehab. JODY met with pt at bedside. Angeles from [employer] was at [facility] this morning to shrimp picker ppwk completed by pt for her three dogs to be in the foster program. Angeles sent additional info to SW for pt to complete. JODY provided ppwk to pt, which was completed, scanned and emailed back to Angeles. Original copy on pt's chart. Pt states she does not think she needs rehab prior to returning home. Per pt, her plan is to go home and get her dogs back when she is discharged. Discussed case with [facility] rehab [facility]. Pt may be agreeable to going to [facility]. Pt is no longer interested in going to [facility]. ST ordered to evaluate pt. JODY is following to assist as needed with discharge planning.
[2020-11-18 15:41] VITALS: BP 140/83
--- NOTE | 2020-11-18 17:53 | NUR ---
PT VERY CONCERNED WITH SHARING GOSSIP THAT SHE HAS NOTICED ABOUT HOSPITAL EMPLOYEES WITH THIS RN. THIS RN SHARED THAT GOSSIP IS NOT SOMETHING I AM INTERESTED IN AND ENCOURAGED PT TO REPORT CONCERNS TO MANAGEMENT. PT STATES SHE HAS ALREADY "REPORTED EVERYTHING" TO QUARRYMAN SUZANNE, STATES "I JUST WANTED YOU TO KNOW WHAT IS GOING ON."
--- NOTE | 2020-11-18 19:09 | EEG ---
[facility] [place] [address] ELECTROENCEPHALOGRAM Name: SELINA LINARES Room #: 363-P ADM IN M.R.#: [id number] Admission: 11/08/20 Attend Phys: Esperanza Kiser Discharge: Date of : 60 Report #: [id number] THIS REPORT FOR: //name// DATE OF SERVICE: 11/18/2020 This patient is being evaluated for post-concussion. EEG was done by placing the electrode by standard 10-20 system of electrode placement. Both referential and sequential montages were used for recording. Background activity in this patient's EEG is about 8-9 Hz and 30 microvolt. The patient became drowsy and that is associated with bilateral slowing. Photic stimulation is unremarkable. Throughout the record, no active epileptiform activity was noticed. IMPRESSION: This patient's EEG demonstrates some intermixed slowing on both sides. That is a nonspecific abnormality, which can occur with drowsiness, effect of psychotropic medication, dementia, etc. No active epileptiform activity was noticed and the finding on the EEG was nonspecific and mild. <ELECTRONICALLY SIGNED> By: Rajesh Hodge MD 11/18/20 [id number] 1427 Rajesh Hodge MD /nt
[2020-11-18 19:26] VITALS: BP 16/72
--- NOTE | 2020-11-18 22:48 | NUR ---
PT AWAKE IN ROOM, TALKING ON PHONE WATCHING TV. PT HAS LIGHTS OFF, PT CONTINUES TO NOT WEAR A SHIRT AND DOES NOT COVER HER CHEST WITH HER SHEET. O2 PER LUCINDA. TUAN TO KATI. IV ANTINBIOTICS. PT REPORTED BEING VERY TIRED TODAY. OBESE GENERALIZED EDEMA. PT CONTINUES TO FOCUS ON SPECIFIC TIME OF PAIN MEDICATIONS. PT REQUESTED PRN FOR CONSTIPATION AND HEARTBURN AND PROVIDED. PT PROVIDED HS SNACK. PT VERY TALKATIVE GOOD EYE CONTACT BLUNTED AFFECT.
[2020-11-19 03:57] VITALS: BP 127/77
[2020-11-19 05:26] LABS: CALCIUM 8.9 mg/dL (8.5-10.1); CREATININE 0.7 mg/dL (0.6-1.0); MAGNESIUM 1.8 mg/dL (1.8-2.4); POTASSIUM 4.1 mmol/L (3.5-5.1)
[2020-11-19 07:22] VITALS: BP 144/83
--- NOTE | 2020-11-19 07:47 | NUR ---
ASSUMED PT CARE AT SHIFT CHANGE, PT ON SIDE IN BED. PT STATES SHE "IS MOVING ALL THE TIME" AND "MAY GET UP IF I FEEL LIKE IT" TO THE CHAIR FOR LUNCH. PT REFUSED SITTING IN THE CHAIR FOR BREAKFAST. PT REMINDED THIS RN TO "GET MY PAIN MEDS ON TIME"
--- NOTE | 2020-11-19 08:58 | NUR ---
PT REQUESTED THIS RN TO "CLEAN UP THIS MESS" THIS RN STRAIGHTENED UP PT PERSONAL ITEMS NEAR WINDOW, USING THE CLOSET PER PT REQUEST. PT THEN STATED TO THIS RN "YOU KNOW, IT'S OK IF YOU HAVE ANYTHING ABOUT THE STAFF HERE YOU NEED TO TALK ABOUT. THIS IS A SAFE ZONE. I WON'T TELL ANYONE" PT THEN PROCEEDED TO TELL THIS RN "HOW HORRIBLE" HER EXPERIENCE WAS WITH A PRIOR NURSE AND HOW THE NURSE "STOLE MY MEDICATION". THIS IS THE SAME CONVERSATION THE PT TALKED ABOUT YESTERDAY WITH THIS RN. PT THEN PROCEEDED TO TELL HOW HER NIECE CALLED THE PT ADVOCATE AND DEMANDED THAT BETTER TREATMENT WAS GIVEN TO PT. THIS RN INFORMED PT THAT THE ADVOCATE IS AVAILABLE AT ANY TIME SHE FEELS SHE NEEDS TO CONTACT THEM.
--- NOTE | 2020-11-19 13:58 | NUR ---
THIS RN ANSWERED PT CALL LIGHT JUST AFTER LUNCH TIME. PT WAS YELLING AND UPSET THAT THE WHEELCHAIR WAS "POKING HER IN THE LEG" PT ALSO HAD HER OXYGEN OFF, HER BACK CONTACT CENTER CONSULTANT ON THE FLOOR, PHONE CAR SALTER OUT OF THE WALL. PT DEMANDED THAT ATIVAN BE PRESCRIBED "PRN" DUE TO HER ANXIETY ATTACKS. PT STATED SHE WAS SO UPSET THAT EVERYONE KEEPS "MOVING HER STUFF AROUND" AND "JUST LEAVING HER TO SIT". THIS RN ASSISTED PT IN PUTTING HER O2 BACK ON, THIS RN WAS REACHING FOR O2 TUBING, PT SLAPPED THIS RN ON THE BACKSIDE. THIS RN INFORMED PT "NOT APPROPRIATE". PT STATED THAT SHE IS "JUST PLAYING AROUND" THIS RN CONTINUED TO ASSIST PT IN REMOVING WHEELCHAIR LEG, ADJUSTING BST TO BE CLOSER TO PT, ADDING FOOTSTOOL FOR PT COMFORT. PT STATED SHE WAS MORE COMFORTABLE AND ABLE TO STAY IN CHAIR. NEURO CONSULT CAME IN THIS RN WAS LEAVING ROOM. PT ASKED THIS RN TO STAY DURING CONSULT.
[2020-11-19 15:50] VITALS: BP 118/73
--- NOTE | 2020-11-19 16:12 | NUR ---
AFTER CONNECTING PT TO AFTERNOON DOSE OF ZOSYN, PT STATED TO THIS RN THAT "IT FEELS LIKE I HAVE AN ELEPHANT ON MY CHEST" PT SKIN DRY, WARM. PAGED DR LAMAR, ORDERED EKG, TROPONIN, AND DDIMER. PAGED DR LAMAR WITH RESULTS. TELE MONITOR APPLIED. PT COMPLAINED THAT SHE DID NOT WANT IT ON, "CHEST PAIN IS NOT MY HEART, IT IS MY SHOULDER" THIS RN REPLACED BROKEN STAT LOCK ON DICKERSON. BLOOD TINGED URINE NOTED. PT STATES DICKERSON HAS "BEEN PULLED AND SWUNG AROUND" BY "PT AND OT". STAT LOCK STICKER WAS NOT ON PT LEG FROM PREVIOUS DEVICE, DICKERSON HAD PLASTIC PIECE STILL CONNECTED. THIS RN FOUND TRAIN EXAMINER FLOOR. PT RESTING COMFORTABLY IN BED, CONTINUES TO DENY CHEST PAIN IS HER HEART.
--- NOTE | 2020-11-19 16:30 | NUR ---
PAGED CARDIOLOGY SPOKE TO OLGA LIDIA. FOR CHANGES IN EKG PER DR LAMAR
--- NOTE | 2020-11-19 16:35 | EKG ---
[address] [place] [address] ELECTROCARDIOGRAM REPORT Name: SELINA LINARES Room #: 363- ADM IN M.R.#: [id number] Admission: 11/08/20 Attend Phys: Esperanza Lee Discharge: Date of : 60 Report #: [id number] [facility] Test Date: 2020-11-19 Test Time: 15:51:45 Pat Name: SELINA LINARES Department: Room: 363 Gender: F It Infrastructure Architect: adele : 1960 Requested By: Naveed Romeo Order Number: [id number] MD: Alexx Wiggins Measurements Intervals [place] Rate: 103 P: 49 CA: 171 QRS: 119 QRSD: 104 T: 25 QT: 330 QTc: 432 Interpretive Statements Sinus tachycardia Right axis deviation Poor R wave progression Compared to ECG 11/16/2020 06:24:59 No significant change was found Electronically Signed On 11-19-2020 16:35:19 CDT by Alexx Wiggins [email or web address] <ELECTRONICALLY SIGNED> By: Alexx Wiggins MD, [facility] 11/19/20 [id number] 1551 1551 Alexx Wiggins MD, FAC /EPI
--- NOTE | 2020-11-19 17:14 | NUR ---
PAGED DR LAMAR WITH LAB RESULTS
[2020-11-19 20:00] VITALS: BP 147/80
[2020-11-20 04:35] VITALS: BP 115/76
[2020-11-20 05:49] LABS: CALCIUM 8.9 mg/dL (8.5-10.1); CREATININE 0.5 mg/dL (0.6-1.0); MAGNESIUM 1.9 mg/dL (1.8-2.4)
--- NOTE | 2020-11-20 07:02 | EKG ---
[address] [address] ELECTROCARDIOGRAM REPORT Name: SELINA LINARES Room #: 363- ADM IN M.R.#: [id number] Admission: 11/08/20 Attend Phys: Esperanza Lee Discharge: Date of : 60 Report #: [id number] [facility] Test Date: 2020-11-19 Test Time: 15:53:35 Pat Name: SELINA LINARES Department: Room: 363 P Gender: F Maintenance Manager: adele : 1960 Requested By: Esperanza Lee Order Number: [id number] MD: Juan Carlos Sawant Measurements Intervals [place] Rate: 104 P: 55 ID: 170 QRS: 120 QRSD: 103 T: 27 QT: 371 QTc: 488 Interpretive Statements Sinus tachycardia Right axis deviation Low voltage, precordial leads Borderline T abnormalities, anterior leads Borderline prolonged QT interval Compared to ECG 11/19/2020 15:51:45 Low QRS voltage now present T-wave abnormality now present Poor R-wave progression no longer present Electronically Signed On 11-20-2020 7:02:42 CDT by Juan Carlos Sawant [email or web address] <ELECTRONICALLY SIGNED> By: Juan Carlos Sawant MD, [facility] 11/20/20 0702 1553 1553 Juan Carlos Sawant MD, [facility] /EPI
[2020-11-20 08:03] VITALS: BP 115/67
--- NOTE | 2020-11-20 09:19 | NUR ---
PT AGITATED AT START OF SHIFT UPSET OVER PAIN MEDICATION TIMING. TALKED OUT A PLAN AND PT SETLED BUT BEING NASTY TO EVERYONE ELSE. MEDICATIONS GIVEN ORDERED .
--- NOTE | 2020-11-20 14:39 | NUR ---
SW reviewed chart and spoke with nursing and attending physician. Pt is on 2L of O2. Pt is on IV abx and IV lasix. [facility] is following for possible admission to in acute rehab. SW met with pt at bedside to discuss discharge plan. Lengthy discussion regarding plan of care and discharge. Pt is hoping to be able to go to [facility] prior to returning home. Pt states that one of her dogs has been adopted. Pt's other three dogs are being fostered together. Pt requested SW contact her friend, Aliza ([phone]) to review visiting hours. JODY spoke with Aliza via phone to inform of visiting hours. Aliza to come to [facility] tomorrow and bring personal items to pt. Awaiting input from at this time. JODY is following to assist as needed with discharge planning.
[2020-11-20 15:31] VITALS: BP 115/63
--- NOTE | 2020-11-20 18:27 | NUR ---
ASSUMED PATIENT CARE AT 0900. NO DISTRESS NOTED. ABLE TO TRANSFER HER SELT FROM BED TO CART. PROGRESSING TOWARDS POC GOALS.
[2020-11-20 20:55] VITALS: BP 119/106
[2020-11-21 07:27] VITALS: BP 125/83
--- NOTE | 2020-11-21 08:16 | NUR ---
progress pt in better spirits this shift pleasant and cooperative. up to bsc x 1 had bm but specimen flushed before it could be collected. to start colace today so pt stated she would be more regular. still getting meds as ordered. denies and further needs fluids still restricted garza put out a very large amount of urine. continue poc.
[2020-11-21 16:09] VITALS: BP 118/73
--- NOTE | 2020-11-21 16:48 | NUR ---
SW reviewed chart and spoke with nursing and attending physician. Pt remains on 2L of O2. Pt is on IV abx, IV steroids and IV lasix. No weekend discharge planned. Case discussed with [facility] clinical rehab liaison. Pt states she would like to go home with HH at this time. SW received call from pt stating that her landlord has evicted her from her apt effective 11/28/2020. Pt has contacted an vba programmer today to assist her with her housing issues. [place] [address] SW is following to assist as needed with discharge planning.
--- NOTE | 2020-11-21 18:44 | NUR ---
ASSUMED PATIENT CARE VAT 0700. PROGRESSING TOWARDS POC GOALS.
[2020-11-22 05:20] VITALS: BP 13/74; BP 130/74
[2020-11-22 07:28] VITALS: BP 138/84
[2020-11-22 15:52] VITALS: BP 124/71
--- NOTE | 2020-11-22 19:17 | NUR ---
PATIENT HAS SLEPT THROUGH THE DAY. DOES NOT SEEM TO BE IN PAIN OR DISTERSS. PLEASANT WITH CARES. WILL CONT WITH PLAN OF CARE.
--- NOTE | 2020-11-23 02:06 | NUR ---
irritable with nursing staff. insists that she will get her medication per her schedule. 0830/1430/2029/0. if the last nurse administers late she will argue and yell until she gets what she wants. which is what happened tonight. she got her hydrocodone 20 minutes early, secondary to her behavior. she then attempted to apologize for her outrageous display of attention and demanding behavior. she blames her behavior on her concussion. she stated that she gets irritable and forgetful and cannot control her emotions. when i asked about the details of her concussion she snapped back at this nurse and asked if i read her chart? I stated that yes i have read her chart and that their is not indication of a concussion in her history and physical.
[2020-11-23 04:35] VITALS: BP 133/77
--- NOTE | 2020-11-23 05:19 | NUR ---
resting quietly this morning. calls out when she needs something approp. no concerns voiced.
[2020-11-23 05:20] LABS: HEMATOCRIT 38.9 % (37.0-47.0); HEMOGLOBIN 10.8 gm/dL (12.0-15.0); MCH 21.5 pg (26.0-34.0); MCHC 27.9 g/dL (28.0-37.0); MCV 77.3 fL (80.0-100.0); RBC 5.03 mil/uL (4.20-5.00); RDW 28.8 % (10.5-14.5); WBC 7.9 thou/uL (4.0-11.0)
[2020-11-23 05:35] LABS: CALCIUM 10.1 mg/dL (8.5-10.1); CREATININE 0.9 mg/dL (0.6-1.0); MAGNESIUM 1.9 mg/dL (1.8-2.4)
[2020-11-23 05:39] LABS: POTASSIUM 6.6 mmol/L (3.5-5.1)
[2020-11-23 07:45] LABS: MAGNESIUM 1.9 mg/dL (1.8-2.4)
[2020-11-23 07:47] LABS: POTASSIUM 3.6 mmol/L (3.5-5.1)
--- NOTE | 2020-11-23 09:55 | O ---
[facility] [place] [address] OPERATIVE REPORT Name: SELINA LINARES Room #: 363-P ADM IN M.R.#: [id number] Admission: 11/08/20 Attend Phys: Esperanza Swapnil Rosa Discharge: Date of : 60 Report #: [id number] THIS REPORT FOR: cc: Nick Gaspar Sr, MD, Otis S Sr MD Deardorff, Valerie A. MD ~ PREOPERATIVE DIAGNOSIS: Left knee osteoarthritis. POSTOPERATIVE DIAGNOSIS: Left knee osteoarthritis. PROCEDURE PERFORMED: Injection of steroid and local anesthetic, left knee joint. SURGEON: Velvet Rios MD ANESTHESIA: Local anesthesia. ESTIMATED BLOOD LOSS: Minimal. INDICATIONS: The patient is a 60-year-old female with the above-mentioned diagnosis. She elects for injection. We discussed the risks, benefits, alternatives and complications including but not limited to flare reaction, skin discoloration and infection. We also discussed a reasonable likelihood of me being unable to perform the injection due to her anatomy and size. We also discussed prior to the procedure that if she feels more pain than she would like, she is able to tell me to stop the procedure and we will have Radiology do it tomorrow under guidance. She elected to proceed. Informed consent was obtained. DESCRIPTION OF PROCEDURE: Under sterile conditions, 2 mL of 1% lidocaine was injected subcutaneously at the proposed injection site. Next, using an 18-gauge spinal needle, a superolateral injection site was used and 4 mL of 0.25% Marcaine and 80 mg of Depo-Medrol was injected into the knee joint. The fluid flowed well and Band-Aid was applied. She tolerated this well. <ELECTRONICALLY SIGNED> By: Velvet Rios MD 11/23/20 0955 [id number] Velvet Rios MD /nt
--- NOTE | 2020-11-23 09:55 | HC ---
[facility] [place] [address] CONSULTATION Name: SELINA LINARES Room #: 363-P ADM IN M.R.#: [id number] Admission: 11/08/20 Attend Phys: Esperanza Lee Discharge: Date of : 60 Report #: [id number] THIS REPORT FOR: cc: Nick Gaspar Sr, MD, Otis S Sr MD Deardorff, Valerie A. MD ~ DATE OF SERVICE: 11/22/2020 REASON FOR CONSULTATION: Bilateral knee pain. HISTORY OF PRESENT ILLNESS: The patient is a 60-year-old female who has been admitted since 11/08 with congestive heart failure as well as other multiple medical problems. She is now on the floor and complaining of bilateral knee pain. She also thinks that she has hip arthritis and complains of bilateral hip pain. With respect to her knees, she sustained a fracture to her right knee approximately 5 years ago that subsequently resulted in her undergoing total knee arthroplasty. She reports she has had pain in it since and receives injections for actually both of her knees by her primary care doctors. It has been a year since she has had an injection and would like a steroid injection into both of her knees. She reports left knee pain as well that has been chronic in nature. REVIEW OF SYSTEMS: MUSCULOSKELETAL: See HPI. NEUROLOGIC: Denies numbness or tingling. PAST MEDICAL HISTORY: Significant for congestive heart failure, anemia, obesity. PAST SURGICAL HISTORY: Umbilical hernia, cholecystectomy, gastric bypass, lumbar fusion. SOCIAL HISTORY: Normally does not ambulate with any assistive devices. Lives at home by herself with her 3 little dogs. Denies smoking or drinking alcohol. ALLERGIES: No known drug allergies. MEDICATIONS: MAR was reviewed. LABORATORY DATA: Labs done on 11/15/2020, showed white blood cell count 9.8, hemoglobin 9.2, hematocrit 33, platelet count 358. INR is 1.1 on 11/08. PHYSICAL EXAMINATION: GENERAL: The patient is alert and oriented. She interacts appropriately. She is a well-developed, obese female in no acute distress. She has a nice affected [facility] [address] [place] [address] CONSULTATION Name: SELINA LINARES Room #: 363-P [facility] IN M.R.#: [id number] Admission: 11/08/20 Attend Phys: Esperanza Kraft Rosa Discharge: Date of : 60 Report #: [id number] and is conversational. She is sitting in her hospital bed. VITAL SIGNS: Most recent vital signs show a temperature of 36.6, heart rate 97, respiratory rate 18, blood pressure 138/84, pulse oximetry 99% on 2 liters nasal cannula. EXTREMITIES: Gross examination of her bilateral upper extremities, she has normal gross motor, sensory and stability is intact. She moves her hands without difficulty. Bilateral lower extremity examination: Sensation is intact to light touch throughout. Gross motor, sensory and strength is intact as well as stability. She has bilateral medial joint line tenderness to her knees. Effusions are difficult to determine due to the patient's obesity. She has mild amount of pain with knee range of motion. No significant pain with hip range of motion and no tenderness in her lower extremities in the legs, ankles or feet. RADIOGRAPHS: AP and lateral of bilateral knees show a well-fixed right total knee arthroplasty without evidence of fracture, left knee shows medial compartment arthrosis. The x-rays were interpreted by myself as well as the report was reviewed. IMPRESSION AND PLAN: 1. History of bilateral hip pain. We will obtain hip x-rays. We would be able to discuss the hip x-rays, but no surgical replacements would be performed at this visit. 2. Status post right total knee arthroplasty with persistent pain. Discussed that at this point, I would not be comfortable injecting a steroid into a total joint, would defer to her other treating position. 3. Left knee arthritis. It would be reasonable to perform a steroid injection to her left knee. I will have nursing obtain all the supplies including a spinal needle. We discussed the potential for having difficulty getting into her knee joint due to the large size of the knee and may require fluoroscopic or ultrasound guidance, which would have to be done on Tuesday. She would like for me to perform it tomorrow and I discussed that this would be reasonable. The risks, benefits, alternatives, complications including but not limited to flare reaction, skin discoloration, and infection were discussed. Questions were encouraged and answered to the best of my ability. I will see her tomorrow morning and perform a steroid injection. <ELECTRONICALLY SIGNED> By: Velvet Rios MD 11/23/20 0955 1023 1201 Velvet Rios MD /nt
[2020-11-23 17:57] VITALS: BP 143/92
--- NOTE | 2020-11-23 18:35 | NUR ---
LEFT KNEE INJECTION BY DR LAZAR THIS AM. PT TOLERATED WELL. HAS NOT COMPLAIN OF NEW PAIN.
[2020-11-23 20:20] VITALS: BP 148/58
[2020-11-24 04:44] VITALS: BP 126/69
[2020-11-24 05:47] LABS: HEMATOCRIT 38.2 % (37.0-47.0); HEMOGLOBIN 10.8 gm/dL (12.0-15.0); MCH 21.5 pg (26.0-34.0); MCHC 28.1 g/dL (28.0-37.0); MCV 76.5 fL (80.0-100.0); RBC 4.99 mil/uL (4.20-5.00); RDW 29.7 % (10.5-14.5); WBC 7.2 thou/uL (4.0-11.0)
[2020-11-24 06:04] LABS: CALCIUM 9.3 mg/dL (8.5-10.1); CREATININE 0.6 mg/dL (0.6-1.0); POTASSIUM 3.8 mmol/L (3.5-5.1)
--- NOTE | 2020-11-24 06:04 | NUR ---
PT PROGRESSNG TOWARDS D/C GOALS. PT UP TO BSC X2. VSS. AFEBRILE THIS AM. MEDICATED FOR CHRONIC BACK PAIN WITH HYDROCODONE. SHE STATES PAIN GETS DOWN TO 5-6. NO S/S DITRESS.
[2020-11-24 07:45] VITALS: BP 136/77
[2020-11-24 15:27] VITALS: BP 103/60
--- NOTE | 2020-11-24 15:56 | HC ---
[facility] [place] [address] CONSULTATION Name: SELINA LINARES Room #: 363-P ADM IN M.R.#: [id number] Admission: 11/08/20 Attend Phys: Esperanza Lee Discharge: Date of : 60 Report #: [id number] THIS REPORT FOR: cc: Nick Gaspar Sr, MD, Otis S Sr MD Althoff, Jeffrey R. MD ~ DATE OF SERVICE: 11/12/2020 CHIEF COMPLAINT: Gluteal pressure ulceration. HISTORY OF PRESENT ILLNESS: This is a 60-year-old female patient with a history of asthma and previous gastric bypass, presented to the Emergency Department with weakness and a fall. She apparently was sitting on the toilet, fell off, was unable to get up and she has been admitted for further evaluation and treatment. She was noted to have a gluteal pressure ulceration. I have been asked to see her with regard to wound care. PAST MEDICAL HISTORY: Significant for history of previous umbilical hernia repair, previous cholecystectomy, gastric bypass, lumbar fusion, morbid obesity, asthma and anemia. SOCIAL HISTORY: The patient has a history of smoking cigarettes, having quit greater than a year ago, but indeed a history of heavy smoking. No alcohol or recreational drug use. FAMILY HISTORY: Noncontributory. REVIEW OF SYSTEMS: CONSTITUTIONAL: The patient denies fever or chills. Complains of generalized weakness. ENT: The patient denies earache, nasal drainage, or sore throat. CARDIOVASCULAR: The patient denies chest pain or palpitations or diaphoresis. PULMONARY: The patient denies cough or shortness of breath. GASTROINTESTINAL: She does note some abdominal distention and discomfort. Denies vomiting or diarrhea. GENITOURINARY: The patient denies frequency of urination. Denies dysuria. ORTHOPEDIC: The patient does not aware of the pressure ulceration at this time. Other systems in a 14-point review of systems are negative. PHYSICAL EXAMINATION: VITAL SIGNS: At this time include temperature 37.2, pulse 107, respiratory rate 18, and blood pressure 127/89. GENERAL: This is a chronically ill-appearing female patient who appears to be in moderate distress. [address] [address] CONSULTATION Name: SELINA LINARES Room #: 363-P ADM IN .R.#: [id number] Admission: 11/08/20 Attend Phys: Esperanza Lee Discharge: Date of : 60 Report #: [id number] HEENT: Head normocephalic. NECK: Supple. LUNGS: Diminished. HEART: Regular. ABDOMEN: Obese, soft, nontender. EXTREMITIES: Examination of the sacral and the gluteal region demonstrates what appears to be a very small shallow stage 3 pressure ulceration to the left buttock. It is not overtly infected. LABORATORY STUDIES: Include white blood cell count 9.5 with a hemoglobin of 8.8. Sodium 138, potassium is 4.0, chloride 98, CO2 of 37, BUN 12, creatinine 0.7, and glucose 115. CLINICAL IMPRESSION: 1. Stage 3 pressure ulceration to the left buttock. 2. Morbid obesity. 3. Generalized debility with weakness. 4. Moderate protein-calorie malnutrition with albumin 2.4. RECOMMENDATIONS: At this point in time, we recommend barrier cream to the gluteal ulcer and otherwise left open to air, once again barrier cream to be applied b.i.d. She will need q. 2 hour turning the positioning and a low air loss mattress. We will order a bariatric low air loss bed. We will need aggressive nutritional support to maximize wound healing. Other management per the hospitalist service. I appreciate being asked to see her in consultation. <ELECTRONICALLY SIGNED> By: Richard Puga MD 11/24/20 1556 1759 26 Richard Puga MD /nt
--- NOTE | 2020-11-24 16:27 | NUR ---
JODY reviewed chart and spoke with nursing and attending physician. Pt is on IV lasix and 2L of O2. Pt has been working with therapy. JODY discussed case with vocational rehabilitation counselor. Pt with [facility] Dual Complete insurance. Will need insurance auth for 5N. JODY met with pt at bedside. Lengthy discussion with pt regarding discharge plan. Pt insists on trying for 5N. OJDY explained process for insurance authorization. Pt verbalized understanding and states that if insurance denies 5N, she is agreeable with discharging home with HH. JODY explained that discharge is anticipated for Tuesday, per attending physician. Pt states that might be too soon. JODY explained that once pt is medically stable for either post-acute or home, discharge orders will be written. Pt states she refused a psych consult earlier on during this admission. Pt requests psych to return for consult. JODY notified psych and attending physician. JODY notified vocational rehabilitation counselor of request for auth. JODY is following to assist as needed with discharge planning.
--- NOTE | 2020-11-24 19:10 | NUR ---
RN ASSUMED PT'S CARE AT 0700AM, PT IS A&OX3, PT'S PAIN CAN CONTROL BY MEDICATIONS, PT CAN GET UP TO BSC WITH ASSIST, PT'S VS ARE STABLE BY THIS TIME,
[2020-11-24 20:39] VITALS: BP 126/71
--- NOTE | 2020-11-25 02:56 | NUR ---
Pt alert and oriented x4. VSS. Afebrile. Unlabored on 2lnc. LCTA. Medicaed for chronic back abd hip pain with 2 hydrocodone. She is sleeping presently. No s/s distress. Buttock wound is healed. Voiding lg amts clear yellow urine per garza. progressing well towards d/c goals.
[2020-11-25 04:47] VITALS: BP 118/78
[2020-11-25 05:18] LABS: HEMATOCRIT 36.8 % (37.0-47.0); HEMOGLOBIN 10.8 gm/dL (12.0-15.0); MCH 22.4 pg (26.0-34.0); MCHC 29.3 g/dL (28.0-37.0); MCV 76.5 fL (80.0-100.0); RBC 4.81 mil/uL (4.20-5.00); RDW 29.7 % (10.5-14.5); WBC 6.7 thou/uL (4.0-11.0)
[2020-11-25 05:29] LABS: CALCIUM 9.3 mg/dL (8.5-10.1); CREATININE 0.7 mg/dL (0.6-1.0); POTASSIUM 3.7 mmol/L (3.5-5.1)
[2020-11-25 07:11] VITALS: BP 123/77
--- NOTE | 2020-11-25 07:33 | NUR ---
PT PROGRESSING TOWARDS D/C GOALS. VSS AFEBRILE. UNLABORED ON RA. PT ANXIOUS TO GO HOME OR TO REHAB.
--- NOTE | 2020-11-25 14:48 | NUR ---
JODY reviewed chart and spoke with nursing and attending physician. Pt is progressing towards goals for discharge. Attending physician discuss discharge plan with pt this morning. Pt is hoping to be able to go to 5N. If insurance denies, pt is agreeable with referral to [facility]. JODY left voice message for Fidelia in admissions at [facility] to verify if they are in-network with pt's insurance. JODY discussed case with 5N rehabilitation nurse, who states that info was submitted to pt's insurance this morning. Awaiting determination at this time. JODY met with pt at bedside to discuss discharge plan. Updated pt that insurance has not yet provided a decision about 5N. Pt states that if insurance does not approve 5N, she would like to go home. SW provided pt with in-network SNF list for review. Pt states she is wanting the psych consult which was ordered earlier during hospital stay. Pt requesting additional consults: ENT and ophthalmology. SW explained that consults that are not medically necessary and/or related to her current hospitalization admission, can be done as an outpatient. Pt became tearful and states that she wants everything done while she is hospitalized, as she does not want to have to come back as an outpatient. Awaiting input from insurance at this time. JODY is following to assist as needed with discharge planning.
[2020-11-25 15:41] VITALS: BP 143/74
--- NOTE | 2020-11-25 16:31 | NUR ---
assumed care of pt at 0700. pt alert and oriented, in no acute distress. breathing comfortably on 2L NC. requiring 4L w/ activity. able to use stairs with physical therapy. pain controlled with current med regimen. requesting ENT consult - hospitalist notified. insurnace pending for transition to rehab. wcm.
[2020-11-25 20:12] VITALS: BP 140/76
--- NOTE | 2020-11-26 03:37 | NUR ---
COOPERATIVE TONIGHT. CONTINUES TO HAVE VERY HIGH STATED PAIN LEVELS. CONTINUES TO BE UNCLOTHED WHILE IN BED AND OUT OF BED. LARGE AMOUNTS OF URINE OUTPUT. CAREPLAN REVIEWED.
[2020-11-26 05:12] VITALS: BP 106/63
--- NOTE | 2020-11-26 08:33 | NUR ---
Nutrition f/u: wt down about 50 lb from admit, question accuracy. Recommend obtain current wt. Pt diuresed, on lasix and spironolactone. Intake 75-100% recent meals. Continues with wound on lt buttock. Pt has refused supplements; but aware of HBV protein needs per prior RD note. Albumin 2.5, CO2 35. Last BM 11/26. Appears pt is working toward discharge soon. Continue POC. Remains at low nutrition risk.
[2020-11-26 08:55] VITALS: BP 131/89
[2020-11-26 09:00] VITALS: BP 131/89
--- NOTE | 2020-11-26 12:52 | NUR ---
[facility] CALLED TO INFORM CUSTOMER ADVISOR THAT A PEER TO PEER WAS BEING REQUESTED. DR. LAMAR WAS CONTACTED TO PERFORM PEER TO PEER. AFTER PEER TO PEER WAS PREFORMED, CUSTOMER ADVISOR RECEIVED NOTIFICATION THAT REHAB ADMISSION HAD BEEN DENIED. APPEAL CAN BE PERFORMED IF DESIRED. PHONE NUMBER FOR APPEAL IS [phone] AND FAX IS [phone]. PLAN AUTH ID IS [id number]. COMBER TENDER INFORMED FOR DENIAL AND APPEAL OPTION. THANK YOU FOR THIS REFERRAL.
--- NOTE | 2020-11-26 15:34 | NUR ---
JODY reviewed chart and spoke with nursing and attending physician. Pt is progressing towards goals for discharge. JODY discussed case with 5N tool liaison. Insurance has denied pt going to inpt acute rehab. Peer to Peer info provided to attending physician. Insurance denied auth for acute rehab. JODY met with pt at bedside to provide update. Pt upset stating she does not feel ready to discharge back home. JODY discussed SNF option. Pt declines stating that she wants to go home, but does not feel ready to be discharged. JODY explained that case will be discussed with clinical team, as pt is progressing towards meeting goals for discharge. JODY discussed options for HH agencies and [employer] companies. No preference voiced. JODY confirmed pt's home address and phone number. Per pt, she has been approved fo 10.5 hours/week through her Medicaid. JODY faxed referral to [facility] and notified liaison. [facility] can provide both HH and in-home Medicaid services. JODY faxed pt's info to [facility] for review. Notified [facility] liaison. Pt will likely need home O2 and nebulizer. Pt will need rest/exercise oximetry ordered to determine home O2 needs. JODY updated pt's nurse, attending physician and Director of Case Mgmt. JODY is following to assist as needed with discharge planning.
[2020-11-26 15:40] VITALS: BP 123/92
--- NOTE | 2020-11-26 18:34 | NUR ---
RN ASSUMED PT'S CARE AT 0700AM , PT IS A&OX3, PT IS CONTINUING O2 2L/NC/MIN, PT IS CONTINUING TO WORK WITH PT/OT, PT'S PAIN CAN CONTROL,
[2020-11-26 19:47] VITALS: BP 132/76
[2020-11-27 04:04] VITALS: BP 122/68
--- NOTE | 2020-11-27 04:05 | NUR ---
PT HAS EXPLAINED MANY TIMES THAT SHE WANTS TO GO TO [address] [place] [address] FOR REHAB. SHE HAS BEEN COOPERATIVE AND PLEASANT. NO CHANGES IN CONDITION TONIGHT.SHE HAS COMPLAINED THAT HER LEFT BREAST IS FEELING WARM AND SORE. SHE DOES HAVE SOME MILD PINK AREA ACCROSS THE AREA. SHE HAS MENTIONED THIS TO THE PHYSICIAN. SHE STATED THAT SHE HAS ASKED FOR AN MRI.
[2020-11-27 07:55] VITALS: BP 118/70
--- NOTE | 2020-11-27 14:42 | NUR ---
PATIENT REQUESTING THROUGH MUSIC HISTORIAN THAT APPEAL FOR ACUTE REHAB BE SENT TO PATIENT'S INSURANCE COMPANY. RECENT PHYSICIAN AND THERAPY DOCUMENTATION SENT TO INSURANCE COMPANY BY FAX TO THEIR EXPADITED APPEALS LINE, . AWAITING RESPONSE. INSURANCE [email or web address] TO NOTIFY MUSIC HISTORIAN UPON DECISION.
--- NOTE | 2020-11-27 15:00 | NUR ---
SW reviewed chart and spoke with nursing and attending physician. Pt is on 2L of O2 and on IV lasix. SW spoke with pt via phone. Pt states that she spoke with her insurance last evening and was told that a decision about auth for 5N was still pending. Pt requested to file an appeal. SW discussed with commercial underwriter. Case discussed with Director of Case Mgmt, who met with pt to discuss discharge/appeal process. Pt wanting to appeal to insurance to try for auth for 5N. JODY updated commercial underwriter. Information submitted to insurance for an expedited appeal by liaison. SW met with pt at bedside to discuss discharge plan. SW explained that [facility] and [facility] are able to accept pt on services. Pt asked about if insurance upholds the denial for 5N. SW explained that SNF option would be available or home with HH. Pt has list of in-network providers for SNF, HH and DME. Pt to review SNF list. SW encouraged pt to look at facilities on her laptop. Pt verbalized understanding. JODY is following to assist as needed with discharge planning.
--- NOTE | 2020-11-27 19:25 | NUR ---
PT UP WITH THERAPY AND WALKED THE HALLWAY. NO NEW COMPLAINT OF PAIN. WILL CONT WITH PLAN OF CARE.
[2020-11-27 19:31] VITALS: BP 109/43
--- NOTE | 2020-11-27 21:00 | NUR ---
Patient very rude and condecending says does she need to train a new staff again to get her pain medication on time? Informed patient her Hydrocodone is ordered PRN and not scheduled. She apologized later for her behaviour.
[2020-11-28 03:28] VITALS: BP 133/86
--- NOTE | 2020-11-28 04:22 | NUR ---
Patient has progressed towards outcome goals. Vital signs stable. Awaiting discharge disposition.
[2020-11-28 07:54] VITALS: BP 126/60
[2020-11-28] MEDS ORDERED: AMOX TR-K CLV1 EAC4 PO (09:39)
[2020-11-28] MEDS ORDERED: BAYER CHEWABLE81 MG PO (09:40)
[2020-11-28] MEDS ORDERED: LIPITOR40 MG PO (09:40)
[2020-11-28] MEDS ORDERED: ALDACTONE50 MG PO (09:40)
[2020-11-28] MEDS ORDERED: AMITRIPTYLINE H25 M2 PO (09:41)
[2020-11-28] MEDS ORDERED: AUGMENTIN 875-1 EACH PO (10:46)
--- NOTE | 2020-11-28 12:00 | NUR ---
EXCHANGE FLOOR MANAGER CALLED PATIENT'S INSURANCE TO COMFIRM RECEIPT OF CLINICAL INFORMATION FOR APPEAL. [employer] DEVELOPER REPORTED THAT THEY ARE BEHIND IN FAXES AND THAT THEY MAY HAVE IT BUT IT IS NOT YET ATTACHED TO PATIENT'S ACCOUNT. REQUESTED ANSWER QUICKLY POSSIBLE DUE TO PATIENT READY TO DISCHARGE. APPEAL CLINICAL INFORMATION RESENT TO ASSURE THAT INSURANCE WOULD HAVE INFORMATION TO REVIEW. LONG WALL MINING MACHINE HELPER INFORMED.
--- NOTE | 2020-11-28 15:29 | NUR ---
SW reviewed chart and spoke with nursing and attending physician. Pt is progressing towards goals for discharge. Psych is following. Pt is on 2L of O2 and IV lasix changed to PO today. Pt's pain meds were changed by attending physician. Pt's appeal to insurance for authorization for 5N is still pending at this time. SW discussed with 5N hospice office coordinator. Attending physician put in discharge orders and states pt is agreeable with going to a SNF. Pt left multiple voice messages for SW regarding discharge plan and pain meds. Director of Case Mgmt spoke with pt via phone. SW reviewed med list prior to visiting with pt. Pt's pain meds were reordered (hydrocodone and morphine). SW met with pt at bedside to discuss discharge plan. Pt states she made a plan to discharge on Tuesday. Pt states she will either go home with HH ([facility]) and [facility]) or to a SNF. List reviewed and pt requests referrals to [facility] and [facility]. SW explained and confirmed with pt that she will be here through the weekend and the plan is to discharge on Tuesday. Pt is agreeable with discharge plan. JODY confirmed plan with Director of Case Mgmt via speakerphone with pt. JODY faxed referrals to [facility] and [facility]. Notified admissions coordinators at both facilities of new referral. JODY also updated [facility] HH liaison and [facility] liaison. JODY is following to assist as needed with discharge planning.
--- NOTE | 2020-11-28 17:06 | NUR ---
WHEN RN INITIALLY WENT INTO THE ROOM PT STATED BEING FRUSTRATED FOR NOT HAVING THE STRICKLER ATTENDANT MEMBER SHE WANTED AND STATED THAT SHE DISLIKED HAVING MALE STAFF MEMBERS. PT WAS ALSO VERBALLY AGGRESSIVE TO THE RN STATING THAT RN HAD TO BE TRAINED AGAIN BECAUSE HE IS NEW TO THE PT. PT LATER APOLOGIZED. HOSPITALIST HAD GIVEN THE DISCHARGE ORDER TO WHICH PT AGGRESSIVELY SAID NO YOU'RE NOT DISCHARGING ME AND WAS VERY UPSET. WHEN RN TOLD THE PT THAT HYDROCODONE HAD BEEN DC'D PT WAS AGAIN UPSET AND CALLED RN A USELESS PAWN. HYDROCODONE WAS THEN RESTARTED PER PAIN MANAGEMENT PROGRAM. IT HAS BEEN CHALLENGING TO CARE FOR THE PT DUE TO VOLATILITY IN CHARACTER WHEN THINGS DO NOT GO HER WAY. PT IS EXPECTED TO DISCHARGE ON TUESDAY PER JODY NOTES
[2020-11-29 06:05] VITALS: BP 129/72
--- NOTE | 2020-11-29 07:48 | NUR ---
PROGRESS PT A/O X4 UPSET MS CONTIN WAS REDUCED TO 15MG BID REPORTING BACK PAIN AT A 7 TO 10 CONSISTENTLY. VOIDING QS, ON ROOM AIR REQUESTING WATER SMALL CUPS 1/4 FULL OF ICE CHIPS AND WATER GIVEN ADVISED PT TO TAKE LIQUIDS SLOWLY. PT UPSET OVER PHYSICIAN TRYING TO DISMISS HER STATES HAS PLANS TO DC TUESDAY. CONTINUE POC.
[2020-11-29 07:59] VITALS: BP 136/59
[2020-11-29 15:43] VITALS: BP 136/80
--- NOTE | 2020-11-29 18:22 | NUR ---
PT HAS NOT HAD ADDITIONAL COMPLAINTS THIS PM. [facility] INSURANCE HAS APPROVED HER TO THE REHAB. WILL CONT WITH PLAN OF CARE.
[2020-11-29 20:00] VITALS: BP 129/84
--- NOTE | 2020-11-30 01:42 | NUR ---
PROGRESS PT A/O X4. EMOTIONALLY LABILE GETS UPSET IF THINGS ARE LATE OR NOT DONE TO HER SPECIFICATIONS. HAPPY THIS SHIFT ALL HER MEDS ARE ON HER SCHEDULE AND HER DOSE, SLEEPING ON AND OFF THROUGHOUT THE SHIFT. VOIDING QS, HAD SUPPOSITORY EARLIER IN DAY WITH NO RESULTS COLACE GIVEN WITH HS MEDS. PLAN IS TO DC TO [facility] REHAB TUESDAY.
[2020-11-30 08:00] VITALS: BP 110/70
[2020-11-30 17:10] VITALS: BP 112/61
--- NOTE | 2020-11-30 19:19 | NUR ---
PORGRESSING TOWARDS POC GOALS.
[2020-11-30 19:39] VITALS: BP 114/62
--- NOTE | 2020-12-01 05:59 | NUR ---
PROGRESS PT A/O X4 UP AD TATO VSS SKIN C/D/I. NO BEHAVIORS NOTED. MEDS GIVEN ON TIME PT SLEPT MOST OF SHIFT PLAN TO DC TO [facility] TODAY IF INSURANCE APPROVES.
[2020-12-01 07:58] VITALS: BP 114/75
--- NOTE | 2020-12-01 11:51 | NUR ---
[facility] THAT WERE [facility] OVER THE WEEKEND. FIRST VOICEMAIL WAS FROM [facility] IN APPEALS DEPT WHO HAD FAXED PATIENT DOUGH [employer]IS[employer] FORM THAT NEEDED TO BE FILLED OUT AND FAXED BACK. 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 THIS MORNING. THE SECOND VOICEMAIL WAS FROM [facility] STATING THAT THE APPEAL HAD BEEN OVERTURNED FOR ACUTE REHAB. [place] ID #[id number]. PHONE NUMBER FOR CALL BACK WAS [phone]. THIS SUPERVISOR LOGGING RETURNED CALL TO THIS NUMBER AND SPOKE WITH NELIA WHO STATED IT WAS A 'MEMBER-LEVEL APPEAL' AND Pt HAD BEEN APPROVED FROM 11/30-12/06 OR 7 DAYS FROM WHATEVER DAY Pt ADMITTED TO ACUTE REHAB UNIT. PRESENTED THIS INFORMATION TO DR. ANDERSON WHO BELIEVES THAT Pt IS TOO HIGH LEVEL FOR ACUTE REHAB AND IS MEDICALLY STABLE TO DISCHARGE AT THIS TIME. DR. ANDERSON AND THIS SUPERVISOR LOGGING SPOKE IN PERSON WITH Pt ABOUT THE SITUATION AND RECOMMENDATIONS. Pt NOT HAPPY ABOUT THIS DECISION AND THAT SHE HAD TO GO THROUGH THE WHOLE APPEAL PROCESS FOR NOTHING. UPDATED CASE MGMT ABOUT SITUATION AND CASE MGMT WILL DISCUSS OTHER OPTIONS WITH Pt REGARDING HH VS SNF AT D/C. THANK YOU FOR THIS REFERRAL TO [facility].
[2020-12-01 13:02] VITALS: BP 114/75
[2020-12-01] MEDS ORDERED: OXYGEN MISCELL (14:23)
[2020-12-01 14:43] VITALS: BP 124/89
--- NOTE | 2020-12-01 15:00 | NUR ---
DISCHARGE NOTE: JODY reviewed chart and spoke with nursing and attending physician. Pt is medically stable for discharge. Pt's insurance provided authorization for pt to go to in acute rehab. Insurance notified pt over the weekend. JODY discussed case with [facility] rehabilitation services manager and physician. Pt does not meet admission criteria for . Rehab physician and rehabilitation services manager met with pt to explain. JODY followed up with pt via phone to discuss alternate options: SNF v. home with HH. Pt states she just wants to go home. JODY explained that HH will follow up with her and assist with transition to home. Rest/exercise oximetry ordered to evaluate pt. Pt requires 2L with activity. JODY faxed testing and script to [facility]. Notified [facility] liaison who delivered portable O2 tank. JODY faxed finalized discharge orders/summary to [facility]. Confirmed info was received with liaByron sales, who states pt is on the schedule to be seen tomorrow. [place] liaison to reach out to pt to arrange first home health visit. Contact info for [facility] and [facility] placed in pt's discharge summary. JODY met with pt at bedside to review discharge plan. Pt's RN and GEOLOGICAL SURVEY FIELD ASSISTANT also present. Discharge ppwk reviewed with pt. Pt states her friend, Aliza, will provide transportation home. JODY updated rehabilitation services manager and Director of Case Mgmt. No additional JODY needs identified at this time, but is available to assist should needs arise.
--- NOTE | 2020-12-01 15:20 | NUR ---
ASSUMED CARE AT SHIFT CHANGE. PT A/O X 4, PLESANT AND CALM THIS MORNING. PLAN FOR TODAY IS TO DC HOME WITH HOME HEALTH. PT HAS STEADY GAIT WITH WALKER IN HALLWAY WITH RT. MANAGED PAIN WITH PRN [facility] AND SCHEDULED PAIN MEDS. PT UNDERSTANDS DC PLAN AND WILL FOLLOW POC. IV AND TELE REMOVED PRIOR TO DC.
== END 2020-12-01 16:30 | disposition home health service (06) | DRG 871 ==
LOC: ER 20:44 → EROBS 22:13 → 3W 22:13
PROVIDERS: Emergency Medicine; Hospitalist; Internal Medicine; Nurse Practitioner; Nurse Practitioner Family; Specialist; ADMIT Hospitalist; ATTEND Hospitalist
DX: A41.9 Sepsis, unspecified organism (principal); L89.323 Pressure ulcer of left buttock, stage 3; I50.33 Acute on chronic diastolic (congestive) heart failure; J96.01 Acute respiratory failure with hypoxia; E43 Unspecified severe protein-calorie malnutrition; J96.02 Acute respiratory failure with hypercapnia; Z68.43 Body mass index [BMI] 50.0-59.9, adult; E66.2 Morbid (severe) obesity with alveolar hypoventilation; I42.9 Cardiomyopathy, unspecified; S06.0X0A Concussion without loss of consciousness, initial encounter; N61.0 Mastitis without abscess; D64.9 Anemia, unspecified; M17.12 Unilateral primary osteoarthritis, left knee; F41.9 Anxiety disorder, unspecified; D50.9 Iron deficiency anemia, unspecified; R53.81 Other malaise; J45.909 Unspecified asthma, uncomplicated; M54.9 Dorsalgia, unspecified; I87.8 Other specified disorders of veins; Z96.651 Presence of right artificial knee joint; E11.9 Type 2 diabetes mellitus without complications; W18.39XA Other fall on same level, initial encounter; F10.21 Alcohol dependence, in remission; G89.4 Chronic pain syndrome; F39 Unspecified mood [affective] disorder; G43.909 Migraine, unspecified, not intractable, without status migrainosus; F43.10 Post-traumatic stress disorder, unspecified; Z20.822 Contact with and (suspected) exposure to COVID-19; Z98.1 Arthrodesis status; Z98.84 Bariatric surgery status; Z90.49 Acquired absence of other specified parts of digestive tract; Z79.899 Other long term (current) drug therapy; Y93.89 Activity, other specified; Y92.89 Other specified places as the place of occurrence of the external cause; Y99.8 Other external cause status; Z91.14 Patient's other noncompliance with medication regimen; Z87.891 Personal history of nicotine dependence
CPT/HCPCS: 10779; 10879